=== PATIENT | female | born 1980 | race Caucasian/White ===

== ENCOUNTER 2019-06-29 12:00 | Inpatient (IN) ==
[2019-06-29 12:14] LABS: Basophils % 0.3 % (0.1-2.0); Eosinophils # 0.1 K/mm3 (0.0-0.4); Eosinophils % 0.4 % (0.1-12.0); Hematocrit 30.8 % (37.0-47.0); Hemoglobin 8.8 g/dL (12.2-16.2); Lymphocytes # 1.3 K/mm3 (0.7-4.5); Lymphocytes % 8.4 % (10-50); Mean Corpuscular HGB Conc 28.6 g/dL (31.8-35.4); Mean Corpuscular Volume 71.8 fl (81-99); Monocytes # 0.8 K/mm3 (0.1-1.0); Monocytes % 4.8 % (1.7-9.3); Neutrophils # 13.7 K/mm3 (1.8-7.8); Neutrophils % 86.1 % (37.0-80.0); Platelet Count 285 K/mm3 (142-424); Red Blood Count 4.29 M/mm3 (4.20-5.40); Red Cell Distribution Width 16.7 % (11.5-17.5); White Blood Count 15.9 K/mm3 (4.8-10.8)
[2019-06-29 12:25] LABS: Chloride 102 mmol/L (98-107); Sodium 138 mmol/L (136-145)
[2019-06-29 12:28] LABS: Alanine Aminotransferase 16 U/L (12-78); Albumin Level 4.3 g/dl (3.5-5.0); Albumin/Globulin Ratio 1.4 (1.1-1.8); Alkaline Phosphatase 73 U/L (38-126); Anion Gap 13.2 mEq/L (5-15); Aspartate Amino Transferase 22 U/L (14-36); Bilirubin,Total 0.4 mg/dl (0.2-1.3); Blood Urea Nitrogen 10 mg/dl (7-17); Calcium 9.1 mg/dl (8.4-10.2); Carbon Dioxide 27 mmol/L (22.0-30.0); Globulin 3.1 g/dL (1.3-3.2); Glucose 106 mg/dl (74-100); Total Protein,Serum 7.4 g/dl (6.3-8.2)
[2019-06-29 13:17] LABS: Lymphocytes % 9 % (10-50); Monocytes % 6 % (2-9); Neutrophils % 85 % (42-76); Total Cells Counted 100
[2019-06-29 13:18] LABS: Anisocytosis 1+; Hypochromasia 2+
--- NOTE | 2019-06-29 15:11 | Consult Report ---
*Admission Date: 06/29/19 *Reason for consult:: Diverticulitis *History of present illness: This is a 39-year-old female seen in consultation with Dr. Catherine for evaluation regarding acute diverticulitis. She presented with increasing left-sided abdominal pain. No definitive fevers. A CT scan confirmed acute diverticulitis with pericolonic punctate air. No sign of distal free air and no evidence of abscess. Review of Systems - Constitutional Denies chills - Eyes Denies discharge - ENT Denies sore throat, Denies dizziness - *Cardiovascular Denies chest pain - *Respiratory Denies cough - *Gastrointestinal Reports abdominal pain - *Genitourinary Denies urinary incontinence - *Musculoskeletal Denies abnormal walking - Integumentary/Breasts Denies non-healing lesions - *Neurologic Denies confusion - Psychiatric Denies anxiety - Endocrine Denies cold intolerance - Hematologic/Lymphatic Denies easy bruising - Allergic/Immunologic Denies hives [facility] History Medical History: Reports:: Anxiety, Depression, Hypertension *Have you ever received a pneumonia vaccine?: No *Have you received a flu vaccine this season?: Yes Other Surgeries: Yes: Cholecystectomy, Dilation and Curettage, Other Amputation: No Fractures: No - *Social History Smoking Status: Never smoker Alcohol Intake: never *Occupational Status:: employed *Travel in the last 8 weeks: None - Psychiatric History Pschychiatric History:: Reports:: Anxiety, Depression Family Hx:: Heart Attack, Stroke [employer] history: Spontaneous , Tubal Ligation Meds Home Medications Medication Instructions Recorded Confirmed Type fluticasone propionate 50 50 mcg INTRANASAL ONCE 05/07/17 06/29/19 History mcg/actuation nasal spray,suspension sertraline 100 mg tablet 100 mg PO DAILY 01/31/19 06/29/19 History ketorolac 10 mg tablet 10 mg PO Q6H PRN #20 tab 06/29/19 06/29/19 Rx omeprazole 40 mg capsule,delayed PO 06/29/19 06/29/19 History release propranolol 60 mg capsule,24 PO 06/29/19 06/29/19 History hr,extended release trazodone 50 mg tablet PO 06/29/19 06/29/19 History Allergies Allergy/AdvReac Type Severity Reaction Status Date / Time amoxicillin Allergy rash Verified 06/29/19 10:31 egg Allergy choking Verified 06/29/19 10:31 Cefaclor Allergy Intermediate I-RASH Uncoded 06/29/19 10:31 SULFA (sulfonamide) Allergy Intermediate I-RASH Uncoded 06/29/19 10:31 Exam Vital signs and Labs for Last 24 Hours: Laboratory Results - last 24 hr 06/29/19 12:02: WBC 15.9 H, RBC 4.29, Hgb 8.8 L, Hct 30.8 L, MCV 71.8 L, MCH 20.5 L, MCHC 28.6 L, RDW 16.7, Plt Count 285, MPV 10.0, Neut % (Auto) 86.1 H, Lymph % (Auto) 8.4 L, [place] % (Auto) 4.8, Eos % (Auto) 0.4, Baso % (Auto) 0.3, Neut # (Auto) 13.7 H, Lymph # (Auto) 1.3, [place] # (Auto) 0.8, Eos # (Auto) 0.1, Baso # (Auto) 0.0, Total Counted 100, Neutrophils % (Manual) 85 H, Lymphocytes % (Manual) 9 L, Monocytes % (Manual) 6, Platelet Estimate Normal, Hypochromasia 2+, Anisocytosis 1+, Microcytosis 1+ 06/29/19 12:02: Sodium 138, Potassium 4.2, Chloride 102, Carbon Dioxide 27, Anion Gap 13.2, BUN 10, Creatinine 0.80, Estimated GFR 79, Est GFR ( Amer) 96, Glucose 106 H, Calcium 9.1, Total Bilirubin 0.4, AST 22, ALT 16, Alkaline Phosphatase 73, Total Protein 7.4, Albumin 4.3, Globulin 3.1, Albumin/Globulin Ratio 1.4 - Constitutional no acute distress - *Routine Respiratory Exam Absent: respiratory distress - *Routine Cardiovascular Exam Present: RRR - *Routine Abdominal Exam Present: soft, tenderness (Mild to moderate left upper quadrant TTP. Moderate left lower quadrant TTP.). Absent: distended Results - Labs 06/29/19 12:02 06/29/19 12:02 Laboratory Results - last 24 hr 06/29/19 12:02: WBC 15.9 H, RBC 4.29, Hgb 8.8 L, Hct 30.8 L, MCV 71.8 L, MCH 20.5 L, MCHC 28.6 L, RDW 16.7, Plt Count 285, MPV 10.0, Neut % (Auto) 86.1 H, Lymph % (Auto) 8.4 L, [place] % (Auto) 4.8, Eos % (Auto) 0.4, Baso % (Auto) 0.3, Neut # (Auto) 13.7 H, Lymph # (Auto) 1.3, [place] # (Auto) 0.8, Eos # (Auto) 0.1, Baso # (Auto) 0.0, Total Counted 100, Neutrophils % (Manual) 85 H, Lymphocytes % (Manual) 9 L, Monocytes % (Manual) 6, Platelet Estimate Normal, Hypochromasia 2+, Anisocytosis 1+, Microcytosis 1+ 06/29/19 12:02: Sodium 138, Potassium 4.2, Chloride 102, Carbon Dioxide 27, Anion Gap 13.2, BUN 10, Creatinine 0.80, Estimated GFR 79, Est GFR ( Amer) 96, Glucose 106 H, Calcium 9.1, Total Bilirubin 0.4, AST 22, ALT 16, Alkaline Phosphatase 73, Total Protein 7.4, Albumin 4.3, Globulin 3.1, Albumin/Globulin Ratio 1.4 - Imaging CT scan - abdomen: report reviewed, image reviewed CT scan - pelvis: report reviewed, image reviewed Assessment and Plan (1) Acute diverticulitis Current visit: Yes Status: Acute Category: Medical Code(s): K57.92 - Diverticulitis of intestine, part unspecified, without perforation or abscess without bleeding Diverticulitis with punctate extraluminal air. No distal free air or abscess noted on CT scan. IV antibiotics Possible PICC line for outpatient antibiotics Serial abdominal exams Possible repeat CT scan in relatively near future for ongoing evaluation Colonoscopy (likely in 6 to 8 weeks) Note: As this does in some manner represent complicated diverticulitis...discussion with regard to possible elective resection (assuming more urgent intervention not necessary) will be ongoing.
[2019-06-30 06:21] LABS: Basophils # 0.1 K/mm3 (0-0.2); Basophils % 0.7 % (0.1-2.0); Eosinophils # 0.1 K/mm3 (0.0-0.4); Hematocrit 27.3 % (37.0-47.0); Lymphocytes # 1.4 K/mm3 (0.7-4.5); Lymphocytes % 17.5 % (10-50); Mean Corpuscular HGB Conc 28.4 g/dL (31.8-35.4); Mean Corpuscular Volume 71.6 fl (81-99); Mean Platelet Volume 9.9 fl (7.4-10.4); Monocytes # 0.6 K/mm3 (0.1-1.0); Monocytes % 7.9 % (1.7-9.3); Neutrophils # 5.7 K/mm3 (1.8-7.8); Neutrophils % 72.9 % (37.0-80.0); Platelet Count 235 K/mm3 (142-424); Red Blood Count 3.81 M/mm3 (4.20-5.40); Red Cell Distribution Width 16.8 % (11.5-17.5); White Blood Count 7.9 K/mm3 (4.8-10.8)
[2019-06-30 06:32] LABS: Hemoglobin 7.7 g/dL (12.2-16.2)
[2019-06-30 07:01] LABS: Anion Gap 9.6 mEq/L (5-15); Calcium 8.7 mg/dl (8.4-10.2)
--- NOTE | 2019-06-30 07:29 | Pharmacy Consult Notes ---
[facility] VTE Monitoring - Patient Demographics Admission date: 06/29/19 Report Date: 06/30/19 Time: 07:29 Allergies/Adverse Reactions: Patient Allergies cefaclor Allergy (Intermediate, Verified 06/29/19 16:19) Rash Sulfa (Sulfonamide Antibiotics) Allergy (Intermediate, Verified 06/29/19 16:19) Rash amoxicillin Allergy (Verified 06/29/19 10:31) rash egg Allergy (Verified 06/29/19 10:31) choking Height: 1.68 m Weight: 97.2 kg Patient Problems: Current Active Problems Acute diverticulitis (Acute) - VTE Risk Labs: VTE Related Lab Results Hgb 7.7 g/dL (12.2-16.2) L* 06/30/19 06:08 Hct 27.3 % (37.0-47.0) L 06/30/19 06:08 Plt Count 235 K/mm3 (142-424) 06/30/19 06:08 BUN 11 mg/dl (7-17) 06/30/19 06:08 Creatinine 0.70 mg/dl (0.52-1.04) 06/30/19 06:08 Estimated Creat Clear 164 mL/min (50-200) 06/30/19 06:08 VTE Score: 3 VTE Risk Level: Low Risk - Prophylaxis VTE Prophylaxis Ordered?: Yes Types of VTE Prophylaxis: TEDS Knee High Location of Applied Device: Bilateral Lower Extremeties
--- NOTE | 2019-06-30 07:29 | Progress Note ---
Subjective Patient reports: feels better Exam Vital signs and Labs for Last 24 Hours: Temp Pulse Resp BP Pulse Ox 98.3 F 87 16 136/67 100 06/30/19 04:00 06/30/19 04:00 06/30/19 04:00 06/30/19 04:00 06/30/19 04:00 Laboratory Results - last 24 hr 06/29/19 12:02: WBC 15.9 H, RBC 4.29, Hgb 8.8 L, Hct 30.8 L, MCV 71.8 L, MCH 20.5 L, MCHC 28.6 L, RDW 16.7, Plt Count 285, MPV 10.0, Neut % (Auto) 86.1 H, Lymph % (Auto) 8.4 L, [place] % (Auto) 4.8, Eos % (Auto) 0.4, Baso % (Auto) 0.3, Neut # (Auto) 13.7 H, Lymph # (Auto) 1.3, [place] # (Auto) 0.8, Eos # (Auto) 0.1, Baso # (Auto) 0.0, Total Counted 100, Neutrophils % (Manual) 85 H, Lymphocytes % (Manual) 9 L, Monocytes % (Manual) 6, Platelet Estimate Normal, Hypochromasia 2+, Anisocytosis 1+, Microcytosis 1+ 06/29/19 12:02: Sodium 138, Potassium 4.2, Chloride 102, Carbon Dioxide 27, Anion Gap 13.2, BUN 10, Creatinine 0.80, Estimated GFR 79, Est GFR ( Amer) 96, Glucose 106 H, Calcium 9.1, Total Bilirubin 0.4, AST 22, ALT 16, Alkaline Phosphatase 73, Total Protein 7.4, Albumin 4.3, Globulin 3.1, Albumin/Globulin Ratio 1.4 06/29/19 15:20: Lactate Dehydrogenase 167 L 06/30/19 06:08: WBC 7.9 D, RBC 3.81 L, Hgb 7.7 L*, Hct 27.3 L, MCV 71.6 L, MCH 20.3 L, MCHC 28.4 L, RDW 16.8, Plt Count 235, MPV 9.9, Neut % (Auto) 72.9, Lymph % (Auto) 17.5, [place] % (Auto) 7.9, Eos % (Auto) 1.0, Baso % (Auto) 0.7, Neut # (Auto) 5.7, Lymph # (Auto) 1.4, [place] # (Auto) 0.6, Eos # (Auto) 0.1, Baso # (Auto) 0.1 06/30/19 06:08: Sodium 135 L, Potassium 3.6, Chloride 102, Carbon Dioxide 27, Anion Gap 9.6, BUN 11, Creatinine 0.70, Estimated Creat Clear 164, Estimated GFR 93, Est GFR ( Amer) 112, Glucose 98, Calcium 8.7 I & O for Last 24 hours: Intake & Output 06/27/19 06/28/19 06/29/19 06/30/19 11:59 11:59 11:59 11:59 Intake Total 1038 / 1038 Balance 1038 / 1038 Weight 214 lb 4.629 oz - Constitutional no acute distress - *Routine Respiratory Exam Absent: respiratory distress - *Routine Cardiovascular Exam Present: RRR - *Routine Abdominal Exam Present: soft Progress Note: A&P (1) Acute diverticulitis Status: Acute Assessment and plan: Clinically improving on Invanz Likely PICC today with continuation of IV antibiotics as an outpatient Colonoscopy as outpatient in near future (likely 6-8 weeks) Consider repeat CT scan within the next 1 to 2 weeks Discussion with regard to possible elective resection will be ongoing Current Visit: Yes (2) Anemia Status: Acute Assessment and plan: Most likely chronic anemia with additional "dilutional effect" (malabsorption or chronic GI (possible [employer]) loss) Decision with regard to transfusion will be deferred to primary service EGD in near future (possibly delay timing to do a combined EGD/colonoscopy) May require small bowel series and possible capsule endoscopy Current Visit: Yes
--- NOTE | 2019-06-30 12:05 | Progress Note ---
Internal Medicine - PN: Subj *Date: 06/30/19 *Time: 12:02 Interval history: She is feeling a little better this morning. Her hemoglobin through likely dilutional effect has dropped to 7.7. She has been feeling fatigued for the last few months. It is not clear whether the blood loss is as result of malabsorption, diet or chronic blood loss. Her pain has improved and her white count is now back to normal. She has been on antibiotics for the last 24 hours. We go ahead and transfuse her a unit of blood since this will increase her iron stores as well as increase her hemoglobin level. We will make sure that she either starts iron at home or we will consider an iron infusion as well. We will plan to discharge her home tomorrow and get a PICC line as well. We will plan to continue with her IV antibiotics for at least another 12 days for a total of 2 weeks of dosages. Exam Vital signs and Labs for Last 24 Hours: Temp Pulse Resp BP Pulse Ox 98.0 F 77 16 106/64 L 95 06/30/19 11:00 06/30/19 11:00 06/30/19 11:00 06/30/19 11:00 06/30/19 11:00 Laboratory Results - last 24 hr 06/29/19 12:02: WBC 15.9 H, RBC 4.29, Hgb 8.8 L, Hct 30.8 L, MCV 71.8 L, MCH 20.5 L, MCHC 28.6 L, RDW 16.7, Plt Count 285, MPV 10.0, Neut % (Auto) 86.1 H, Lymph % (Auto) 8.4 L, [place] % (Auto) 4.8, Eos % (Auto) 0.4, Baso % (Auto) 0.3, Neut # (Auto) 13.7 H, Lymph # (Auto) 1.3, [place] # (Auto) 0.8, Eos # (Auto) 0.1, Baso # (Auto) 0.0, Total Counted 100, Neutrophils % (Manual) 85 H, Lymphocytes % (Manual) 9 L, Monocytes % (Manual) 6, Platelet Estimate Normal, Hypochromasia 2+, Anisocytosis 1+, Microcytosis 1+ 06/29/19 12:02: Sodium 138, Potassium 4.2, Chloride 102, Carbon Dioxide 27, Anion Gap 13.2, BUN 10, Creatinine 0.80, Estimated GFR 79, Est GFR ( Amer) 96, Glucose 106 H, Calcium 9.1, Total Bilirubin 0.4, AST 22, ALT 16, Alkaline Phosphatase 73, Total Protein 7.4, Albumin 4.3, Globulin 3.1, Albumin/ Globulin Ratio 1.4 06/29/19 15:20: Lactate Dehydrogenase 167 L 06/30/19 06:08: WBC 7.9 D, RBC 3.81 L, Hgb 7.7 L*, Hct 27.3 L, MCV 71.6 L, MCH 20.3 L, MCHC 28.4 L, RDW 16.8, Plt Count 235, MPV 9.9, Neut % (Auto) 72.9, Lymph % (Auto) 17.5, [place] % (Auto) 7.9, Eos % (Auto) 1.0, Baso % (Auto) 0.7, Neut # (Auto) 5.7, Lymph # (Auto) 1.4, [place] # (Auto) 0.6, Eos # (Auto) 0.1, Baso # (Auto) 0.1 06/30/19 06:08: Sodium 135 L, Potassium 3.6, Chloride 102, Carbon Dioxide 27, Anion Gap 9.6, BUN 11, Creatinine 0.70, Estimated Creat Clear 164, Estimated GFR 93, Est GFR ( Amer) 112, Glucose 98, Calcium 8.7 06/30/19 08:48: Blood Type B Positive, Antibody Screen Negative, Crossmatch (AHG) See Detail I & O for Last 24 hours: Intake & Output 06/28/19 06/29/19 06/30/19 07/01/19 11:59 11:59 11:59 11:59 Intake Total 1398 / 1398 Balance 1398 / 1398 Weight 214 lb 4.629 oz - Constitutional no acute distress - *Routine HEENT Exam Head: Present: normocephalic Eye: Present: EOMI, PERRL ENT: Present: mucous membranes moist Assessment and Plan (1) Acute diverticulitis Current visit: Yes Status: Acute Category: Medical Code(s): K57.92 - Diverticulitis of intestine, part unspecified, without perforation or abscess without bleeding (2) Anemia Current visit: Yes Status: Acute Category: Medical Code(s): D64.9 - Anemia, unspecified - Assessment and plan all Dx Assessment and Plan for all problems:: We will transfer her 1 unit of blood today. We will continue with her IV antibiotics. We will plan to send her home tomorrow. She will get a PICC line prior to discharge and we will give her IV antibiotics daily for the next couple of weeks. I would like a full 14 days of IV antibiotics. She may also be a candidate for IV iron as an outpatient as well. We may consider oral iron as well. Her white blood cell count has dropped.
[2019-06-30 13:21] LABS: Hematocrit 30.7 % (37.0-47.0)
[2019-06-30 13:54] LABS: Hemoglobin 8.9 g/dL (12.2-16.2)
--- NOTE | 2019-07-01 07:03 | Progress Note ---
Subjective Patient reports: no new complaints, feels better, still having pain, pain is less Exam Vital signs and Labs for Last 24 Hours: Temp Pulse Resp BP Pulse Ox 98.4 F 88 18 137/85 97 07/01/19 04:32 07/01/19 04:32 07/01/19 04:32 07/01/19 04:32 07/01/19 04:32 Laboratory Results - last 24 hr 06/30/19 06:08: Sodium 135 L, Potassium 3.6, Chloride 102, Carbon Dioxide 27, Anion Gap 9.6, BUN 11, Creatinine 0.70, Estimated Creat Clear 164, Estimated GFR 93, Est GFR ( Amer) 112, Glucose 98, Calcium 8.7 06/30/19 08:48: Blood Type B Positive, Antibody Screen Negative, Crossmatch (AHG) See Detail 06/30/19 13:06: Hgb 8.9 L D, Hct 30.7 L I & O for Last 24 hours: Intake & Output 06/28/19 06/29/19 06/30/19 07/01/19 11:59 11:59 11:59 11:59 Intake Total 1648 / 1648 1779 / 1779 Balance 1648 / 1648 1779 / 1779 Weight 214 lb 4.629 oz 220 lb 5 oz - Constitutional no acute distress - *Routine Respiratory Exam Absent: respiratory distress - *Routine Cardiovascular Exam Present: RRR Progress Note: A&P (1) Acute diverticulitis Status: Acute Assessment and plan: f/u AM labs likely PICC today likely d/c home today with IV abx and outpatient f/u Current Visit: Yes (2) Anemia Status: Acute Assessment and plan: f/u AM labs continuation of evaluation as outpatient Current Visit: Yes
[2019-07-01 07:14] LABS: Basophils # 0.1 K/mm3 (0-0.2); Eosinophils # 0.1 K/mm3 (0.0-0.4); Eosinophils % 1.1 % (0.1-12.0); Hematocrit 32.9 % (37.0-47.0); Hemoglobin 9.6 g/dL (12.2-16.2); Lymphocytes # 1.4 K/mm3 (0.7-4.5); Lymphocytes % 20.8 % (10-50); Mean Corpuscular HGB Conc 29.2 g/dL (31.8-35.4); Mean Corpuscular Volume 73.1 fl (81-99); Mean Platelet Volume 8.2 fl (7.4-10.4); Monocytes # 0.4 K/mm3 (0.1-1.0); Monocytes % 6.4 % (1.7-9.3); Neutrophils # 4.9 K/mm3 (1.8-7.8); Neutrophils % 70.7 % (37.0-80.0); Platelet Count 284 K/mm3 (142-424); White Blood Count 6.9 K/mm3 (4.8-10.8)
--- NOTE | 2019-07-01 08:59 | Discharge Summary ---
General - General Admission date:: 06/29/19 Discharge date: 07/01/19 HPI HPI: She is a 39-year-old lady who complains of severe left lower quadrant pain. She was seen in my office and an ultrasound was normal. We then had a CT scan that showed diverticulitis with a small microperforation. Her white blood cell count was elevated and she was also found to be microcytic anemic. As result of the pain and CT findings were elected to admit her. We consulted Dr. Medina in general surgery. She also complains of extremely heavy periods every month. She has had a previous tubal ligation. Hospital Course Hospital Course: She was admitted to the hospital for pain relief as well as IV antibiotics. Her CT scan had showed a microperforation along with acute diverticulitis. There was a trace of free air along the colon. She has been receiving 1 g IV daily of Invanz. On admission as well she was noted to be severely anemic with an initial hemoglobin of 8.8 and microcytic anemia. We elected to give her 1 unit of blood since her hemoglobin had dropped to 7.7 likely as result of dilution. On her second admission day now she is doing much better. She feels much better. Her pain is a 4 out of 10. She has been taking occasional Demerol as well as Toradol. After receiving her 1 unit of blood her hemoglobin has increased to 9.6. We will plan to discharge her home today and she will return daily for IV antibiotics as an outpatient. We will give her a total of 14 days of antibiotics. She has an appointment to follow-up with Dr. Medina in a week. I have given a prescription for Lortab 7.5 number 20 tablets to take as needed every 6 hours for pain. She also has a prescription for Toradol that she will take as well. I have told her to take a stool softener if her bowels get firm. We will start her on some iron tablets as well. I told her if she gets constipation then we should take the iron every other day. As an outpatient we will address her menorrhagia as well and she would be a good candidate for an endometrial ablation. I will see her back in the office in 2 weeks time. Her condition on discharge is stable and improved. Objective Vital signs: Temp Pulse Resp BP Pulse Ox 98 F 75 16 124/72 100 07/01/19 07:41 07/01/19 07:41 07/01/19 07:41 07/01/19 07:41 07/01/19 07:41 no acute distress - *Routine HEENT Exam Head: Present: normocephalic Eye: Present: EOMI, PERRL ENT: Present: mucous membranes moist - *Routine Neck Exam Present: supple - *Routine Respiratory Exam Present: accessory muscle use - *Routine Abdominal Exam Present: soft, normoactive bowel sounds. Absent: tenderness - *Routine Extremities Exam Absent: cyanosis, clubbing, edema - *Routine Skin Exam Present: warm. Absent: rash - Detailed Eye Exam Eyelids: Bilateral normal inspection Results Labs on day of discharge: Labs from last 24 hours 07/01/19 06/30/19 06/30/19 06:52 13:06 08:48 WBC 6.9 RBC 4.50 Hgb 9.6 L 8.9 L D Hct 32.9 L 30.7 L MCV 73.1 L MCH 21.3 L MCHC 29.2 L RDW 17.0 Plt Count 284 MPV 8.2 Neut % (Auto) 70.7 Lymph % (Auto) 20.8 [place] % (Auto) 6.4 Eos % (Auto) 1.1 Baso % (Auto) 1.0 Neut # (Auto) 4.9 Lymph # (Auto) 1.4 [place] # (Auto) 0.4 Eos # (Auto) 0.1 Baso # (Auto) 0.1 Blood Type B Positive Antibody Screen Negative Crossmatch (AHG) See Detail DS: Diagnosis - Discharge Diagnosis (1) Acute diverticulitis Status: Acute (2) Anemia Status: Acute (3) Menorrhagia Status: Acute Discharge Plan - Patient Discharge Instructions ACTIVITY: Continue current activity DIET: continue same diet Additional Instructions: Soft diet Patient Instructions: Diverticulitis, Anemia, DI for Diverticulitis - Follow up Plan Follow up with: Ryan Medina MD [Staff Physician] - 1 week Disposition: Home, Self-Longterm Medications: Home Medications Medication Instructions Recorded Confirmed Type fluticasone propionate 50 50 mcg INTRANASAL HS 05/07/17 06/30/19 History mcg/actuation nasal spray,suspension sertraline 100 mg tablet 150 mg PO DAILY 01/31/19 06/30/19 History ketorolac 10 mg tablet 10 mg PO Q6H PRN #20 tab 06/29/19 06/30/19 Rx omeprazole 40 mg capsule,delayed 40 mg PO DAILY 06/29/19 06/30/19 History release propranolol 60 mg capsule,24 60 mg PO HS 06/29/19 06/30/19 History hr,extended release trazodone 50 mg tablet 100 mg PO HS 06/29/19 06/30/19 History Ferrous Sulfate [Ferrous Sulfate 325 mg PO DAILY #30 tab 07/01/19 Rx 325mg Tablet] Hydrocodone/Acetaminophen [Lortab 1 tab PO Q6HP PRN #20 tab 07/01/19 Rx 7.5/325mg tablet] Prescriptions/Medication Reconciliation: New Hydrocodone/Acetaminophen [Lortab 7.5/325mg tablet] 1 tab PO Q6HP PRN #20 tab PRN Reason: Moderate To Severe Pain Ferrous Sulfate [Ferrous Sulfate 325mg Tablet] 325 mg PO DAILY #30 tab Continued fluticasone propionate 50 mcg/actuation nasal spray,suspension 50 mcg INTRANASAL HS omeprazole 40 mg capsule,delayed release 40 mg PO DAILY propranolol 60 mg capsule,24 hr,extended release 60 mg PO HS trazodone 50 mg tablet 100 mg PO HS ketorolac 10 mg tablet 10 mg PO Q6H PRN #20 tab PRN Reason: pain sertraline 100 mg tablet 150 mg PO DAILY - Problem Reconciliation Problems Reviewed?: Yes
== END 2019-07-01 10:54 | disposition home or self-care (01) | DRG 392 ==
LOC: 2ND 12:00 → OB 12:00 → LAB 12:00 → OBSVTOIN 14:29
PROVIDERS: ADMIT Nurse Practitioner Obstetrics & Gynecology; ATTEND Nurse Practitioner Obstetrics & Gynecology
CPT/HCPCS: 36415; 36569; 71010; 71045; 74176; 80048; 80053; 83615; 85007; 85014; 85018; 85025; 86850; 87040; C1751; J1335; P9016

== ENCOUNTER 2019-07-04 15:55 | Outpatient (CLI) | payer BC, SELFPAY | END 2019-07-04 16:03 | disposition home or self-care (01) | LOC: INF 15:55 | PROVIDERS: Visit Provider Nurse Practitioner Obstetrics & Gynecology | DX: Z45.2 Encounter for adjustment and management of vascular access device (principal); K57.92 Diverticulitis of intestine, part unspecified, without perforation or abscess without bleeding | CPT/HCPCS: G0463 ==

== ENCOUNTER → 2019-07-11 12:27 | Outpatient (CLI) | payer BC, SELFPAY ==
[2019-07-11 12:40] LABS: Basophils # 0.1 K/mm3 (0-0.2); Eosinophils # 0.1 K/mm3 (0.0-0.4); Eosinophils % 1.7 % (0.1-12.0); Hematocrit 33.7 % (37.0-47.0); Hemoglobin 9.8 g/dL (12.2-16.2); Lymphocytes # 1.7 K/mm3 (0.7-4.5); Lymphocytes % 22.7 % (10-50); Mean Corpuscular HGB Conc 29.1 g/dL (31.8-35.4); Mean Corpuscular Hemoglobin 21.7 pg (27.0-31.2); Mean Corpuscular Volume 74.5 fl (81-99); Mean Platelet Volume 10.1 fl (7.4-10.4); Monocytes # 0.4 K/mm3 (0.1-1.0); Monocytes % 4.8 % (1.7-9.3); Neutrophils # 5.2 K/mm3 (1.8-7.8); Neutrophils % 69.8 % (37.0-80.0); Platelet Count 270 K/mm3 (142-424); Red Blood Count 4.52 M/mm3 (4.20-5.40); Red Cell Distribution Width 18.5 % (11.5-17.5); White Blood Count 7.4 K/mm3 (4.8-10.8)
[2019-07-11 14:15] LABS: Anion Gap 15.8 mEq/L (5-15); Blood Urea Nitrogen 15 mg/dl (7-17); Calcium 9.4 mg/dl (8.4-10.2); Carbon Dioxide 27 mmol/L (22.0-30.0); Chloride 103 mmol/L (98-107); Estimated Glomerular Filt Rate 93 ml/min (>60); GFR (African American) 112 ML/MIN (>60); Glucose 103 mg/dl (74-100); Potassium 4.8 mmoL/L (3.5-5.1); Sodium 141 mmol/L (136-145)
--- NOTE | 2019-07-11 14:19 | CT_ITS ---
PROCEDURE: CT ABDOMEN PELVIS W CON CLINICAL INDICATION: diverticulitis Diverticulitis, pelvic and perineal pain COMPARISON: CT ABDOMEN PELVIS WO CON from 06/29/2019 TECHNIQUE: IV Contrast: 75ML OPTIRAY 350 Oral Contrast 20ml Gastroview Axial images obtained with sagittal and coronal reformats. All CT scans at the facility use one or more dose reduction, viz: automated exposure control, ma/kV adjustment per patient size (including targeted exams where dose is matched to indication, i.e. head), or iterative reconstruction technique. FINDINGS: LOWER THORAX: No acute finding ABDOMEN & PELVIS: There has been a cholecystectomy. Liver, adrenal glands, pancreas, and kidneys have an unremarkable appearance. There is mild splenomegaly at 14 cm. No intestinal obstruction or free air. No evidence of appendicitis. There is mild diverticulosis of the descending and sigmoid colon with some minimal thickening and stranding of the pericolic fat at the junction of the descending and sigmoid colon in the left lower quadrant consistent with diverticulitis. No abscess or perforation evident. IMPRESSION: Persistent but improved diverticulitis left lower quadrant. Previously noted extra colic air no longer apparent and there has been improvement in the stranding of the pericolic fat Dictated by: Jerome Oseguera MD 07/11/2019 15:08 Electronically signed by Jerome Oseguera MD in [place] 07/11/2019 15:08
== END ==
PROVIDERS: Visit Provider Nurse Practitioner Obstetrics & Gynecology
DX: K57.92 Diverticulitis of intestine, part unspecified, without perforation or abscess without bleeding (principal); R10.2 Pelvic and perineal pain; K46.9 Unspecified abdominal hernia without obstruction or gangrene
CPT/HCPCS: 36415; 74177; 80048; 85025; Q9967

== ENCOUNTER → 2019-09-13 09:31 | Outpatient (CLI) | payer BC, SELFPAY ==
[2019-09-13 09:36] LABS: Adenovirus,PCR Not Detected (NotDetected); Bordetella Pertussis Not Detected (NotDetected); Chlamydophila Pneumoniae, PCR Not Detected (NotDetected); Coronavirus 19, PCR Not Detected (NotDetected); Coronavirus 229E Not Detected (NotDetected); Coronavirus NL63 Not Detected (NotDetected); Coronavirus OC43 Not Detected (NotDetected); Coronovirus HKU1,PCR Not Detected (NotDetected); Human Metapneumovirus Not Detected (NotDetected); Influenza A, PCR Not Detected (NotDetected); Influenza AH1, 2009 Not Detected (NotDetected); Influenza AH1, PCR Not Detected (NotDetected); Influenza AH3,PCR Not Detected (NotDetected); Influenza B, PCR Not Detected (NotDetected); Mycoplasma Pneumoniae, PCR Not Detected (NotDected); Parainfluenza 1, PCR Not Detected (NotDetected); Parainfluenza 2, PCR Not Detected (NotDetected); Parainfluenza 3, PCR Not Detected (NotDetected); Parainfluenza 4, PCR Not Detected (NotDetected); Respiratory Syncytial Virus Not Detected (NotDetected); Rhinovirus/Enterovirus Not Detected (NotDetected)
[2019-09-13 10:03] LABS: Urine Pregnancy, HCG Qual. Negative (Negative)
[2019-09-13 10:19] LABS: Basophils # 0.1 K/mm3 (0-0.2); Basophils % 0.8 % (0.1-2.0); Eosinophils # 0.1 K/mm3 (0.0-0.4); Eosinophils % 2.1 % (0.1-12.0); Hematocrit 35.7 % (37.0-47.0); Lymphocytes # 1.6 K/mm3 (0.7-4.5); Lymphocytes % 23.4 % (10-50); Mean Corpuscular HGB Conc 30.9 g/dL (31.8-35.4); Mean Corpuscular Hemoglobin 24.3 pg (27.0-31.2); Mean Corpuscular Volume 78.7 fl (81-99); Mean Platelet Volume 8.2 fl (7.4-10.4); Monocytes # 0.4 K/mm3 (0.1-1.0); Monocytes % 5.7 % (1.7-9.3); Neutrophils # 4.5 K/mm3 (1.8-7.8); Platelet Count 310 K/mm3 (142-424); Red Blood Count 4.53 M/mm3 (4.20-5.40); Red Cell Distribution Width 20.1 % (11.5-17.5); White Blood Count 6.6 K/mm3 (4.8-10.8)
== END ==
PROVIDERS: Visit Provider Surgery
DX: D64.9 Anemia, unspecified (principal); Z01.818 Encounter for other preprocedural examination
CPT/HCPCS: 36415; 81025; 85025; 87581; 87633; 87798

== ENCOUNTER 2019-09-15 06:29 | Day surgery (SDC) | payer BC, SELFPAY ==
--- NOTE | 2019-09-12 14:13 | SUR.PREOP ---
09/12/2019 @ 1413--PHONE CALL MADE TO PATIENT. PATIENT UNDERSTANDS THAT LAB WORK AND COVID TESTING NEEDS TO BE COMPLETED @ 9:30,10--BUT BY 11AM ON 09/13/2019. PATIENT UNDERSTANDS IF LAB WORK AND COVID-19 TESTS ARE NOT COMPLETED BY 12PM ON THAT DATE, THE SURGERY SCHEDULED WILL BE CANCELLED AND RESCHEDULED FOR ANOTHER TIME.
[2019-09-14 09:42] VITALS: BMI 34.7
[2019-09-15] VITALS (7 sets, daily range): BP systolic 135–151; BP diastolic 79–97; PULSE 66–90; RESP 18–20; TEMP 36.2–36.3; O2SAT 94–100
[2019-09-15 06:43] LABS: Urine Pregnancy, HCG Qual. Negative (Negative)
--- NOTE | 2019-09-15 08:14 | [facility].SCOPE ---
- Procedure: Date: 09/15/19 Procedure Performed:: Esophagogastroduodenoscopy with biopsy Colonoscopy with polypectomy by means other than snare Indications:: Anemia History of diverticulitis Performing Provider:: Ryan Medina MD Referring Provider:: . Sedation:: Monitored anesthesia care Procedure:: After informed consent was obtained the patient was taken to the endoscopy suite. Sedation ensued after the patient was transferred to the left lateral decubitus position. Pulse, blood pressure, and oxygen saturation were monitored throughout the procedure. The endoscope was advanced beyond the duodenal bulb. Retroflexion within the gastric lumen was accomplished. The gastroscope was carefully removed. Digital rectal exam revealed no significant abnormality. The colonoscope was placed in position. The entire colon was evaluated. The colonoscope was carefully removed and the patient was transferred to recovery in stable condition. Please see findings and specimens below for detail. Findings:: Gastroesophageal junction at 38 cm Mild gastritis Hemorrhoidal tag/cushions Bowel preparation moderate Fairly spastic colon Moderate tortuosity Mild sigmoid diverticulosis Polyp at 40 cm Specimens:: Antral biopsy Colon polyp at 40 cm Recommendations:: Timing of repeat colonoscopy is pending pathology but will likely be between 3-5 years secondary to moderate bowel prep and spasticity/tortuosity Ongoing evaluation with regard to anemia (serial hemoglobin/hematocrit, hemoccult stool studies, possible small bowel series, possible capsule endoscopy, etc.) Complications:: No immediate Estimated blood obtained (mL): 1
--- NOTE | 2019-09-15 11:24 | P.PN_ITS ---
[facility] Anesthesia Checklist - Patient Identification Patient Identification: Arm Band - Structural Data Admitted From: Home Planned Operative Procedure/s: egd/colonoscopy Consent for Planned Operative Procedure(s) Verified: Yes Verified Documents: Surgical Consent, History and Physical - NPO Status Verified Time NPO: 00:00 - Additional verifications Anesthesia Reactions: No - Airway Assessment C-Spine Mobility Assessed: Yes (mp2) TMJ Mobility Assessed: Yes Dentition: Good Dentition - Neurological Assessment Level of Consciousness: Awake, Alert - Anesthesia Plan Anesthesia Risk discussed: Yes Anesthesia Plan: Verified ASA Class: II Anesthesia Type: MAC [facility] History Medical History: Reports:: Anxiety, Cancer (pre cancerous cells), Depression, Hypertension Denies:: Diabetes Mellitus Type 1, Diabetes Mellitus Type 2, Internal Pacemaker, MRSA, Seizures *Have you ever received a pneumonia vaccine?: No *Have you received a flu vaccine this season?: No Other Medical History: Reports: Anemia Anesthesia experience/problems:: nac Other Surgeries: Yes: Cholecystectomy, Dilation and Curettage, Other. 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
== END 2019-09-15 09:10 | disposition home or self-care (01) ==
LOC: OUTP 06:30
PROVIDERS: PCP Physician Assistant; Visit Provider Surgery
PROC: 0DJ08ZZ Inspection of Upper Intestinal Tract, Via Natural or Artificial Opening Endoscopic (ICD-10-PCS; CPT 43235; principal; 2019-09-15 07:30)
DX: D64.9 Anemia, unspecified (principal); K29.70 Gastritis, unspecified, without bleeding; K57.30 Diverticulosis of large intestine without perforation or abscess without bleeding
CPT/HCPCS: 43239; 45380; 81025; J2704

== ENCOUNTER → 2019-10-20 10:46 | Outpatient (CLI) | payer BC, SELFPAY ==
[2019-10-20 11:57] LABS: Hematocrit 36.3 % (37.0-47.0); Hemoglobin 11.6 g/dL (12.2-16.2)
== END ==
PROVIDERS: Visit Provider Surgery
DX: D64.9 Anemia, unspecified (principal)
CPT/HCPCS: 36415; 85014; 85018

== ENCOUNTER → 2019-10-24 12:19 | Outpatient (CLI) | payer BC, SELFPAY | PROVIDERS: Visit Provider Surgery | DX: D64.9 Anemia, unspecified (principal) ==

== ENCOUNTER → 2019-10-26 11:31 | Outpatient (CLI) | payer BC, SELFPAY ==
[2019-10-26 12:00] LABS: Basophils # 0.1 K/mm3 (0-0.2); Basophils % 1.1 % (0.1-2.0); Eosinophils # 0.1 K/mm3 (0.0-0.4); Eosinophils % 1.8 % (0.1-12.0); Hematocrit 36.9 % (37.0-47.0); Lymphocytes # 1.7 K/mm3 (0.7-4.5); Lymphocytes % 23.5 % (10-50); Mean Corpuscular HGB Conc 32.5 g/dL (31.8-35.4); Mean Corpuscular Hemoglobin 27.3 pg (27.0-31.2); Mean Corpuscular Volume 84.2 fl (81-99); Mean Platelet Volume 8.6 fl (7.4-10.4); Monocytes # 0.4 K/mm3 (0.1-1.0); Monocytes % 5.8 % (1.7-9.3); Neutrophils # 4.9 K/mm3 (1.8-7.8); Neutrophils % 67.9 % (37.0-80.0); Platelet Count 278 K/mm3 (142-424); Red Blood Count 4.39 M/mm3 (4.20-5.40); Red Cell Distribution Width 15.4 % (11.5-17.5); White Blood Count 7.2 K/mm3 (4.8-10.8)
== END ==
PROVIDERS: Visit Provider Surgery
DX: K57.92 Diverticulitis of intestine, part unspecified, without perforation or abscess without bleeding (principal)
CPT/HCPCS: 36415; 85025

== ENCOUNTER → 2019-11-03 08:41 | Outpatient (CLI) | payer BC, SELFPAY ==
--- NOTE | 2019-11-03 08:42 | FL_ITS ---
PROCEDURE: FL SMALL BOWEL FOLLOW THROUGH CLINICAL INDICATION: diverticulitis Anemia COMPARISON: No exams were available for comparison FINDINGS: Fluoroscopy time: 36 seconds Novelty Worker exam shows surgical clips in right upper quadrant as well as bilateral Essure devices The small bowel has an unremarkable appearance. No obstructing lesions mucosal abnormalities or small bowel dilatation is evident. There is normal transit time. Spot views of the terminal ileum are unremarkable. IMPRESSION: Unremarkable small bowel follow-through Dictated by: Jerome Oseguera MD 11/04/2019 07:17 Electronically signed by Jerome Oseguera MD in [place] 11/04/2019 07:17
== END ==
PROVIDERS: PCP Physician Assistant; Visit Provider Surgery
DX: K57.92 Diverticulitis of intestine, part unspecified, without perforation or abscess without bleeding (principal)
CPT/HCPCS: 74250

== ENCOUNTER 2019-11-21 13:37 | Inpatient (IN) | payer BC, SELFPAY ==
[2019-11-21] VITALS (8 sets, daily range): BP systolic 116–138; BP diastolic 66–88; PULSE 65–77; RESP 18–22; TEMP 36.8–37.3; O2SAT 96–100; BMI 34.7; BMI 35.2
--- NOTE | 2019-11-21 14:03 | CT_ITS ---
PROCEDURE: CT ABDOMEN PELVIS W CON CLINICAL INDICATION: abd pain, vomitting Abdominal pain and vomiting, history of diverticulitis COMPARISON: CT ABDOMEN PELVIS W CON from 07/11/2019 TECHNIQUE: IV Contrast: 75ML OPTIRAY 350 Oral Contrast None Axial images obtained with sagittal and coronal reformats. All CT scans at the facility use one or more dose reduction, viz: automated exposure control, ma/kV adjustment per patient size (including targeted exams where dose is matched to indication, i.e. head), or iterative reconstruction technique. FINDINGS: LOWER THORAX: No acute finding ABDOMEN & PELVIS: There has been a prior cholecystectomy. There is mild splenomegaly at 14 cm. No focal liver lesion. The adrenal glands and pancreas and kidneys have an unremarkable appearance. No renal or ureteral calculi. No evidence of appendicitis. Bowel gas pattern is nonspecific with some scattered fluid-filled loops of large bowel. There is focal thickening of the junction of the descending and sigmoid colon in the left lower quadrant with stranding of the pericolic fat with associated diverticula consistent with acute diverticulitis. There is a small air-fluid level in this region in the left lower quadrant measuring 10 mm and may be due to small abscess. There is an additional 2.7 x 1.6 cm fluid collection in the left lower quadrant posterior to the junction of the descending and sigmoid colon and may be due to small developing abscess. No acute bony anomalies. There are bilateral Essure device is present IMPRESSION: 1. Acute diverticulitis in the left lower quadrant at the junction of the descending and sigmoid colon. There is a small para diverticular abscess at 10 mm with a deeper collection at 2.7 x 1.6 cm suspicious for developing abscess. No distal free air apparent. The the area of diverticulitis is in the similar region compared to 07/11/2019. 2. Scattered air-fluid levels in the colon which are nonspecific and could be seen with colitis, ileus, or diarrhea disease. Dictated by: Jerome Oseguera MD 11/21/2019 14:59 Electronically signed by Jerome Oseguera MD in [place] 11/21/2019 14:59
[2019-11-21 14:11] LABS: Basophils # 0.1 K/mm3 (0-0.2); Basophils % 0.5 % (0.1-2.0); Eosinophils # 0.1 K/mm3 (0.0-0.4); Eosinophils % 1.2 % (0.1-12.0); Hematocrit 35.6 % (37.0-47.0); Hemoglobin 11.5 g/dL (12.2-16.2); Lymphocytes # 1.8 K/mm3 (0.7-4.5); Lymphocytes % 16.6 % (10-50); Mean Corpuscular HGB Conc 32.4 g/dL (31.8-35.4); Mean Corpuscular Hemoglobin 26.5 pg (27.0-31.2); Mean Corpuscular Volume 81.9 fl (81-99); Mean Platelet Volume 8.3 fl (7.4-10.4); Monocytes # 0.6 K/mm3 (0.1-1.0); Monocytes % 5.7 % (1.7-9.3); Neutrophils # 8.1 K/mm3 (1.8-7.8); Platelet Count 356 K/mm3 (142-424); Red Blood Count 4.34 M/mm3 (4.20-5.40); Red Cell Distribution Width 14.2 % (11.5-17.5); White Blood Count 10.7 K/mm3 (4.8-10.8)
[2019-11-21 14:13] LABS: Chloride 99 mmol/L (98-107); Potassium 3.7 mmoL/L (3.5-5.1); Sodium 139 mmol/L (136-145)
[2019-11-21 14:16] LABS: Alanine Aminotransferase 22 U/L (12-78); Albumin Level 4.2 g/dl (3.5-5.0); Albumin/Globulin Ratio 1.1 (1.1-1.8); Alkaline Phosphatase 85 U/L (38-126); Amylase 63 U/L (30-110); Anion Gap 13.7 mEq/L (5-15); Aspartate Amino Transferase 22 U/L (14-36); Bilirubin,Total 0.5 mg/dl (0.2-1.3); Blood Urea Nitrogen 11 mg/dl (7-17); Calcium 9.3 mg/dl (8.4-10.2); Carbon Dioxide 30 mmol/L (22.0-30.0); Creatinine Clearance Estimated 192 mL/min (50-200); Estimated Glomerular Filt Rate 111 ml/min (>60); GFR (African American) 134 ML/MIN (>60); Globulin 3.7 g/dL (1.3-3.2); Glucose 99 mg/dl (74-100); Lipase 76 U/L (23-300); Total Protein,Serum 7.9 g/dl (6.3-8.2)
--- NOTE | 2019-11-21 14:23 | PC.NURSE ---
pt going to ct
[2019-11-21 15:35] LABS: Microscopic, Urine URINE MICROSCOPIC (MICROSCOPIC)
[2019-11-21 15:37] LABS: Appearance,Urine CLEAR (Clear); Blood, Urine 2+ (Negative); Color,Urine YELLOW (Yellow); Glucose,Urine (UA) Negative (Negative); Ketones,Urine Negative (Negative); Leukocyte Esterase,Urine Negative (Negative); Nitrate,Urine Negative (Negative); PH,Urine 5.5 (5.0-8.5); Protein,Urine 1+ (Negative); Specific Gravity, Urine <= 1.005 (1.005-1.030); Urobilinogen,Urine 0.2 EU/dl (0.2)
[2019-11-21 15:39] LABS: Urine Pregnancy, HCG Qual. Negative (Negative)
--- NOTE | 2019-11-21 15:42 | PC.NURSE ---
contacted surgery office for Dr. Medina per CARIE RAMIREZ request, staff states he is not in the office, states dr. simeon is guest relations officer and they will have him call us as he is not in the office at this time
--- NOTE | 2019-11-21 15:47 | PC.NURSE ---
CARIE RAMIREZ speaking with Dr. simeon
[2019-11-21 16:03] LABS: Bilirubin,Urine Negative (Negative)
[2019-11-21 16:04] LABS: Bacteria,Urine Trace /lpf; Mucus,Urine Trace /lpf
--- NOTE | 2019-11-21 16:54 | HMH.EDABDPAI ---
ED Disposition Clinical Impression: Diverticulitis Disposition: Admitted as Observation Condition on Discharge: Good - Critical Care Critical Care Time: No Attestation: On 11/21/19, the high probability of a clinically significant, sudden or life threatening deterioration of the following system(s) required my full and direct attention, intervention and personal management. The time I documented below is in addition to time spent performing reported procedures but includes the following listed in this critical care notation. Medical Decision Making - Medical Records Medical records reviewed: Yes: I reviewed the patient's medical records. - Jamel Inquiry Pt receiving controlled substance: No Vital Signs: 11/21/19 13:57 11/21/19 15:23 11/21/19 15:44 Temperature 99.0 F 98.9 F Temperature Source Oral Oral Pulse Rate [Left Radial] 77 65 Respiratory Rate 18 Blood Pressure [Left Arm] 117/80 128/66 Blood Pressure Mean [Left Arm] 92 86 Blood Pressure Source [Left Arm] Automatic Cuff Blood Pressure Position [Left Arm] Sitting Sitting 02 Sat by Pulse Oximetry 96 97 Oxygen Delivery Method Room Air Room Air - Lab Data Lab results reviewed: Yes: I reviewed the patient's lab results. Lab Results 11/21/19 14:00: WBC 10.7, RBC 4.34, Hgb 11.5 L, Hct 35.6 L, MCV 81.9, MCH 26.5 L, MCHC 32.4, RDW 14.2, Plt Count 356, MPV 8.3, Neut % (Auto) 76.0, Lymph % (Auto) 16.6, [place] % (Auto) 5.7, Eos % (Auto) 1.2, Baso % (Auto) 0.5, Neut # (Auto) 8.1 H, Lymph # (Auto) 1.8, [place] # (Auto) 0.6, Eos # (Auto) 0.1, Baso # (Auto) 0.1 11/21/19 14:00: Sodium 139, Potassium 3.7, Chloride 99, Carbon Dioxide 30, Anion Gap 13.7, BUN 11, Creatinine 0.60, Estimated Creat Clear 192, Estimated GFR 111, Est GFR ( Amer) 134, Glucose 99, Calcium 9.3, Total Bilirubin 0.5, AST 22, ALT 22, Alkaline Phosphatase 85, Total Protein 7.9, Albumin 4.2, Globulin 3.7 H, Albumin/Globulin Ratio 1.1, Amylase 63, Lipase 76 11/21/19 15:25: Urine Color Yellow, Urine Appearance Clear, Urine pH 5.5, Ur Specific [place] <= 1.005, Urine Protein 1+, Urine Glucose (UA) Negative, Urine Ketones Negative, Urine Blood 2+, Urine Nitrate Negative, Urine Bilirubin Negative, Urine Urobilinogen 0.2, Ur Leukocyte Esterase Negative, Urine RBC 10-20, Urine WBC 3-5, Ur Squamous Epith Cells 5-10, Urine Bacteria Trace, Urine Mucus Trace 11/21/19 15:25: Urine HCG, Qual Negative Result diagrams: 11/21/19 14:00 11/21/19 14:00 Orders (Tests/Meds): ED MEDICATIONS Generic Name Dose Route Start Last Admin Trade Name Freq PRN Reason Stop Dose Admin Ertapenem 1 gm/ Sodium 50 mls @ 100 mls/hr 11/21/19 16:30 11/21/19 16:38 Chloride IV 12/05/19 16:29 100 mls/hr Q24H DOMINIQUE Administration Protocol Discontinued Medications Generic Name Dose Route Start Last Admin Trade Name Freq PRN Reason Stop Dose Admin Hydromorphone HCl 1 mg 11/21/19 15:32 11/21/19 15:34 Dilaudid 2mg/Ml Syringe IV 11/21/19 15:33 1 mg ONCE ONE Administration Sodium Chloride 1,000 mls @ 999 mls/hr 11/21/19 14:15 11/21/19 14:13 Sod Chlor 0.9% 1000ml Bag IV 11/21/19 15:15 999 mls/hr .Q1H1M DOMINIQUE Administration Ioversol 75 ml 11/21/19 14:35 11/21/19 14:35 Rad-Optiray 350 100ml Vial IV 11/21/19 14:36 75 ml ONCE ONE Administration Protocol Ketorolac Tromethamine 30 mg 11/21/19 14:04 11/21/19 14:13 Toradol 30mg/Ml Vial IV 11/21/19 14:05 30 mg ONCE ONE Administration Ondansetron HCl 4 mg 11/21/19 14:04 11/21/19 14:13 Zofran 4mg/2ml Vial IV 11/21/19 14:05 4 mg ONCE ONE Administration Ondansetron HCl 4 mg 11/21/19 15:33 11/21/19 15:34 Zofran 4mg/2ml Vial IV 11/21/19 15:34 4 mg ONCE ONE Administration Sodium Chloride 10 ml 11/21/19 14:35 11/21/19 14:35 Rad-Saline Flush 10ml Syringe IV 11/21/19 14:36 10 ml ONCE ONE Administration - CT Data CT Scan: Abdomen, Pelvis Time Received: 16:00 Preliminary Findings:
--- NOTE | 2019-11-21 17:22 | PC.NURSE ---
dr. simeon at [facility]
--- NOTE | 2019-11-21 17:40 | HMH.GSCON ---
*Admission Date: 11/21/19 *Reason for consult:: Diverticulitis *History of present illness: Patient is a very pleasant 39-year-old white female. She has a history of diverticulitis earlier this year in June at which time she required brief inpatient stay under the care of Dr. Medina for intravenous antibiotics. She has been noted to be anemic and Dr. Medina has seen her extensively as an outpatient for work-up and evaluation including mendoza endoscopy and upper GI with small bowel follow-through. She had been in her usual state of health until this past on 11/17/2019 when she was out of town on vacation and she developed acute onset of left lower quadrant pain. evening she presented to an emergency department in [facility] and CT scan revealed diverticulitis. She was given a prescription for a fluoroquinolone and metronidazole. Over the past several days her symptoms have persisted and progressed. She had contacted the office earlier today and recommendations were to be evaluated in the emergency department. She underwent CT scan in the emergency department which revealed findings consistent with diverticulitis with possibly developing abscess in the left lower quadrant. Review of Systems - Review of Systems Review of systems:: pertinent systems reviewed and negative unless documented below [facility] History Medical History: Reports:: Anxiety, Cancer, Depression, Hypertension Denies:: Diabetes Mellitus Type 1, Diabetes Mellitus Type 2, Internal Pacemaker, MRSA, Seizures *Have you ever received a pneumonia vaccine?: No *Have you received a flu vaccine this season?: Yes Other Medical History: Reports: Anemia Other Surgeries: Yes: Cholecystectomy, Colonoscopy, Dilation and Curettage, Tubal Ligation, Other. 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 , Tubal Ligation Meds Home Medications Medication Instructions Recorded Confirmed Type fluticasone propionate 50 50 mcg INTRANASAL HS 05/07/17 11/21/19 History mcg/actuation nasal spray,suspension sertraline 100 mg tablet 150 mg PO DAILY 01/31/19 11/21/19 History ketorolac 10 mg tablet 10 mg PO Q6H PRN #20 tab 06/29/19 10/26/19 Rx omeprazole 40 mg capsule,delayed 40 mg PO DAILY 06/29/19 10/26/19 History release propranolol 60 mg capsule,24 60 mg PO HS 06/29/19 11/21/19 History hr,extended release trazodone 50 mg tablet 100 mg PO HS 06/29/19 11/21/19 History ondansetron 4 mg disintegrating 4 mg PO Q6H PRN #30 tab 07/06/19 10/26/19 Rx tablet Ferrous Sulfate [Ferrous Sulfate 325 mg PO DAILY 09/14/19 10/26/19 History 325mg Tablet] Sodium, Potassium,Mag Sulfates See Rx Instructions PO .COMPLEX 09/14/19 10/26/19 History [Suprep Bowel Prep Kit] Saccharomyces boulardii 250 mg 250 mg PO BID 10/26/19 10/26/19 History capsule Allergies Allergy/AdvReac Type Severity Reaction Status Date / Time cefaclor Allergy Intermediate Rash Verified 10/26/19 10:52 Sulfa (Sulfonamide Allergy Intermediate Rash Verified 10/26/19 10:52 Antibiotics) amoxicillin Allergy rash Verified 10/26/19 10:52 egg Allergy choking Verified 10/26/19 10:52 Exam Vital signs and Labs for Last 24 Hours: Temp Pulse Resp BP Pulse Ox 98.9 F 65 18 128/66 97 11/21/19 15:44 11/21/19 15:23 11/21/19 13:57 11/21/19 15:23 11/21/19 15:23 Laboratory Results - last 24 hr 11/21/19 14:00: WBC 10.7, RBC 4.34, Hgb 11.5 L, Hct 35.6 L, MCV 81.9, MCH 26.5 L, MCHC 32.4, RDW 14.2, Plt Count 356, MPV 8.3,
--- NOTE | 2019-11-21 17:47 | PC.NURSE ---
report called to juvenal hummel rn on second floor.
--- NOTE | 2019-11-21 19:09 | PC.NURSE ---
report given to farooq
[2019-11-22 04:00] VITALS: BP 124/80; PULSE 66; RESP 18; TEMP 37.2; O2SAT 90
[2019-11-22 05:04] VITALS: BMI 35.4
[2019-11-22 06:33] LABS: Chloride 101 mmol/L (98-107); Potassium 3.6 mmoL/L (3.5-5.1); Sodium 139 mmol/L (136-145)
[2019-11-22 06:35] LABS: Alanine Aminotransferase 15 U/L (12-78); Aspartate Amino Transferase 20 U/L (14-36); Blood Urea Nitrogen 10 mg/dl (7-17); Creatinine Clearance Estimated 197 mL/min (50-200); Estimated Glomerular Filt Rate 111 ml/min (>60); GFR (African American) 134 ML/MIN (>60)
[2019-11-22 06:36] LABS: Albumin Level 3.6 g/dl (3.5-5.0); Albumin/Globulin Ratio 1.1 (1.1-1.8); Alkaline Phosphatase 71 U/L (38-126); Anion Gap 9.6 mEq/L (5-15); Bilirubin,Total 0.3 mg/dl (0.2-1.3); Calcium 8.8 mg/dl (8.4-10.2); Carbon Dioxide 32 mmol/L (22.0-30.0); Globulin 3.2 g/dL (1.3-3.2); Glucose 90 mg/dl (74-100); Total Protein,Serum 6.8 g/dl (6.3-8.2)
[2019-11-22 06:38] LABS: Basophils # 0.1 K/mm3 (0-0.2); Basophils % 0.7 % (0.1-2.0); Eosinophils # 0.1 K/mm3 (0.0-0.4); Eosinophils % 1.5 % (0.1-12.0); Hematocrit 34.2 % (37.0-47.0); Hemoglobin 10.7 g/dL (12.2-16.2); Lymphocytes # 1.4 K/mm3 (0.7-4.5); Lymphocytes % 16.3 % (10-50); Mean Corpuscular HGB Conc 31.2 g/dL (31.8-35.4); Mean Corpuscular Hemoglobin 26.4 pg (27.0-31.2); Mean Corpuscular Volume 84.6 fl (81-99); Mean Platelet Volume 8.3 fl (7.4-10.4); Monocytes # 0.6 K/mm3 (0.1-1.0); Monocytes % 6.3 % (1.7-9.3); Neutrophils # 6.7 K/mm3 (1.8-7.8); Neutrophils % 75.2 % (37.0-80.0); Platelet Count 300 K/mm3 (142-424); Red Blood Count 4.04 M/mm3 (4.20-5.40); Red Cell Distribution Width 14.2 % (11.5-17.5); White Blood Count 8.9 K/mm3 (4.8-10.8)
--- NOTE | 2019-11-22 07:00 | HMH.GSPN ---
Subjective Patient reports: no new complaints Narrative: Pt states that she is still sore . She was given a regular diet. Exam Vital signs and Labs for Last 24 Hours: Temp Pulse Resp BP Pulse Ox 98.9 F 66 18 124/80 90 L 11/22/19 04:00 11/22/19 04:00 11/22/19 04:00 11/22/19 04:00 11/22/19 04:00 Laboratory Results - last 24 hr 11/21/19 14:00: WBC 10.7, RBC 4.34, Hgb 11.5 L, Hct 35.6 L, MCV 81.9, MCH 26.5 L, MCHC 32.4, RDW 14.2, Plt Count 356, MPV 8.3, Neut % (Auto) 76.0, Lymph % (Auto) 16.6, [place] % (Auto) 5.7, Eos % (Auto) 1.2, Baso % (Auto) 0.5, Neut # (Auto) 8.1 H, Lymph # (Auto) 1.8, [place] # (Auto) 0.6, Eos # (Auto) 0.1, Baso # (Auto) 0.1 11/21/19 14:00: Sodium 139, Potassium 3.7, Chloride 99, Carbon Dioxide 30, Anion Gap 13.7, BUN 11, Creatinine 0.60, Estimated Creat Clear 192, Estimated GFR 111, Est GFR ( Amer) 134, Glucose 99, Calcium 9.3, Total Bilirubin 0.5, AST 22, ALT 22, Alkaline Phosphatase 85, Total Protein 7.9, Albumin 4.2, Globulin 3.7 H, Albumin/Globulin Ratio 1.1, Amylase 63, Lipase 76 11/21/19 15:25: Urine Color Yellow, Urine Appearance Clear, Urine pH 5.5, Ur Specific [place] <= 1.005, Urine Protein 1+, Urine Glucose (UA) Negative, Urine Ketones Negative, Urine Blood 2+, Urine Nitrate Negative, Urine Bilirubin Negative, Urine Urobilinogen 0.2, Ur Leukocyte Esterase Negative, Urine RBC 10-20, Urine WBC 3-5, Ur Squamous Epith Cells 5-10, Urine Bacteria Trace, Urine Mucus Trace 11/21/19 15:25: Urine HCG, Qual Negative 11/22/19 05:48: WBC 8.9, RBC 4.04 L, Hgb 10.7 L, Hct 34.2 L, MCV 84.6, MCH 26.4 L, MCHC 31.2 L, RDW 14.2, Plt Count 300, MPV 8.3, Neut % (Auto) 75.2, Lymph % (Auto) 16.3, [place] % (Auto) 6.3, Eos % (Auto) 1.5, Baso % (Auto) 0.7, Neut # (Auto) 6.7, Lymph # (Auto) 1.4, [place] # (Auto) 0.6, Eos # (Auto) 0.1, Baso # (Auto) 0.1 11/22/19 05:48: Sodium 139, Potassium 3.6, Chloride 101, Carbon Dioxide 32 H, Anion Gap 9.6, BUN 10, Creatinine 0.60, Estimated Creat Clear 197, Estimated GFR 111, Est GFR ( Amer) 134, Glucose 90, Calcium 8.8, Total Bilirubin 0.3, AST 20, ALT 15 D, Alkaline Phosphatase 71, Total Protein 6.8, Albumin 3.6 D, Globulin 3.2, Albumin/Globulin Ratio 1.1 I & O for Last 24 hours: Intake & Output 11/19/19 11/20/19 11/21/19 11/22/19 11:59 11:59 11:59 11:59 Intake Total 150 / 150 Balance 150 / 150 Weight 220 lb 3 oz - *Routine Abdominal Exam Present: soft Comments: Tenderness in LLQ Progress Note: A&P Assessment and Plan for All Diagnoses:: Continue IV antibiotics. Limit to full liquid diet.
--- NOTE | 2019-11-22 07:08 | HMH.PHAVTE ---
[facility] Pharmacy VTE Monitoring - Patient Demographics Admission date: 11/21/19 Report Date: 11/22/19 Time: 07:08 Allergies/Adverse Reactions: Patient Allergies Penicillins Allergy (Severe, Verified 11/21/19 18:26) Hives cefaclor Allergy (Intermediate, Verified 11/21/19 18:25) Rash Sulfa (Sulfonamide Antibiotics) Allergy (Intermediate, Verified 11/21/19 18:25) Rash amoxicillin Allergy (Verified 11/21/19 18:25) rash egg Allergy (Verified 11/21/19 18:25) choking Height: 1.68 m Weight: 99.875 kg Patient Problems: Current Active Problems Diverticulitis (Acute) - VTE Risk Labs: VTE Related Lab Results Hgb 10.7 g/dL (12.2-16.2) L 11/22/19 05:48 Hct 34.2 % (37.0-47.0) L 11/22/19 05:48 Plt Count 300 K/mm3 (142-424) 11/22/19 05:48 BUN 10 mg/dl (7-17) 11/22/19 05:48 Creatinine 0.60 mg/dl (0.52-1.04) 11/22/19 05:48 Estimated Creat Clear 197 mL/min (50-200) 11/22/19 05:48 Was VTE Risk Assessment Performed: Yes VTE Score: 1 Clinical Trial Participant: No - Prophylaxis VTE Prophylaxis Ordered?: Yes Types of VTE Prophylaxis: TEDS Knee High
--- NOTE | 2019-11-22 07:41 | HMH.HP ---
*Admission Date: 11/21/19 *Chief complaint: Abdominal pain *History of present illness: 39-year-old female with history of diverticulitis of the sigmoid colon presented to the emergency department with worsening left lower quadrant abdominal pain after recently being diagnosed with diverticulitis approximately 3 days prior. Patient had been out of town when she developed left lower quadrant abdominal pain was seen and was diagnosed with in outside hospital (the [facility] in [facility]) diverticulitis based on presenting symptoms, CT scan, elevated white blood cell count. Patient was given IV antibiotics in the emergency department and then discharged. She reports 24 hours after beginning therapy she developed fevers and through the weekend her pain gradually worsened and she developed associated nausea and vomiting. Patient's pain was worse yesterday and she presented to our emergency department where she was found to have findings consistent with diverticulitis with developing abscess of approximately 2.7 cm. Surgical service was contacted and recommended admission with IV antibiotics. Patient's abscess is in the same area as her prior episode of diverticulitis with perforation back in June of this year. This morning she reports she is beginning to feel better. [facility] History I have reviewed the patient's past medical history: Yes Medical History: Reports:: Anxiety, Cancer, Depression, Hypertension Denies:: Diabetes Mellitus Type 1, Diabetes Mellitus Type 2, Internal Pacemaker, MRSA, Seizures *Have you ever received a pneumonia vaccine?: No *Have you received a flu vaccine this season?: Yes Other Medical History: Reports: Anemia Other Surgeries: Yes: Cholecystectomy, Colonoscopy, Dilation and Curettage, Tubal Ligation, Other. 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 , Tubal Ligation Review of Systems - Review of Systems Review of systems:: pertinent systems reviewed and negative unless documented below Meds Home Medications Medication Instructions Recorded Confirmed Type fluticasone propionate 50 50 mcg INTRANASAL HS 05/07/17 11/21/19 History mcg/actuation nasal spray,suspension sertraline 100 mg tablet 150 mg PO DAILY 01/31/19 11/21/19 History omeprazole 40 mg capsule,delayed 40 mg PO DAILY 06/29/19 11/21/19 History release propranolol 60 mg capsule,24 60 mg PO HS 06/29/19 11/21/19 History hr,extended release trazodone 50 mg tablet 100 mg PO HS 06/29/19 11/21/19 History ondansetron 4 mg disintegrating 4 mg PO Q6H PRN #30 tab 07/06/19 11/21/19 Rx tablet Lactobacillus Rhamnosus GG 1 each PO DAILY 11/21/19 11/21/19 History [Culturelle] Allergies Allergy/AdvReac Type Severity Reaction Status Date / Time Penicillins Allergy Severe Hives Verified 11/21/19 18:26 cefaclor Allergy Intermediate Rash Verified 11/21/19 18:25 Sulfa (Sulfonamide Allergy Intermediate Rash Verified 11/21/19 18:25 Antibiotics) amoxicillin Allergy rash Verified 11/21/19 18:25 egg Allergy choking Verified 11/21/19 18:25 Exam Vital signs and Labs for Last 24 Hours: Temp Pulse Resp BP Pulse Ox 98.9 F 66 18 124/80 90 L 11/22/19 04:00 11/22/19 04:00 11/22/19 04:00 11/22/19 04:00 11/22/19 04:00 Laboratory Results - last 24 hr 11/21/19 14:00: WBC 10.7, RBC 4.34, Hgb 11.5 L, Hct 35.6 L, MCV 81.9, MCH 26.5 L, MCHC 32.4, RDW 14.2, Plt Count 356, MPV 8.3, Neut % (Auto) 76.0, Lymph % (Auto) 16.6, [place] % (Auto) 5.7, Eos % (Auto)
[2019-11-22 08:00] VITALS: BP 121/79; PULSE 79; RESP 18; TEMP 36.6; O2SAT 93
--- NOTE | 2019-11-22 10:07 | HMH.PHAINT ---
MEDICATION RECONCILIATION COMPLETED USING OFFICE NOTE FROM 10/26/2019.
[2019-11-22 16:00] VITALS: BP 122/72; PULSE 75; RESP 18; TEMP 36.5; O2SAT 100
--- NOTE | 2019-11-22 18:02 | PC.NURSE ---
Pt has required Dilaudid 1mg IV 3-4 times for abd pain. Had 1 dose of Zofran for vomiting. Is up ad tanika. Tolerates a full liquid diet. Received 2L of IVF per order of NS @ 150mL/hr. No other issues noted.
--- NOTE | 2019-11-22 18:38 | PC.NURSE ---
Pt had episode of vomiting @ 1700. I gave Zofran 4mg IV. She still complains of nausea @ 1830. Contacted Dr. Hurtado, who ordered Promethazine 12.5mg IV x 1 dose. Order faxed to [facility].
[2019-11-22 20:00] VITALS: BP 152/87; PULSE 67; RESP 18; TEMP 36.8; O2SAT 94
[2019-11-23 04:00] VITALS: BP 134/74; PULSE 75; RESP 18; TEMP 36.7; O2SAT 95
[2019-11-23 04:53] VITALS: BMI 35.7
[2019-11-23 08:00] VITALS: BP 151/95; PULSE 62; RESP 16; TEMP 36.8; O2SAT 99
--- NOTE | 2019-11-23 08:18 | HMH.ACPN2 ---
Internal Medicine - PN: Subj *Date: 11/23/19 *Time: 08:18 Interval history: Patient states her pain is better today than it was yesterday. She is battled nausea after each attempt to eat and yesterday vomited after both lunch and attempts at supper with just liquid diets. This morning she has had a small amount of sherbet. Exam Vital signs and Labs for Last 24 Hours: Temp Pulse Resp BP Pulse Ox 98.0 F 75 18 134/74 95 11/23/19 04:00 11/23/19 04:00 11/23/19 04:00 11/23/19 04:00 11/23/19 04:00 I & O for Last 24 hours: Intake & Output 11/20/19 11/21/19 11/22/19 11/23/19 11:59 11:59 11:59 11:59 Intake Total 510 / 510 2890 / 2890 Output Total 1000 / 1000 Balance 510 / 510 1890 / 1890 Weight 220 lb 3 oz 222 lb 7 oz Narrative: patient looks comfortable. Lungs are clear. Heart has a regular rate and rhythm. Abdomen is soft with persistent left lower quadrant tenderness although left upper quadrant tenderness present yesterday has resolved. Bowel sounds are present. Assessment and Plan (1) Acute diverticulitis Current visit: No Status: Acute Category: Medical Code(s): K57.92 - Diverticulitis of intestine, part unspecified, without perforation or abscess without bleeding (2) Colonic diverticular abscess Current visit: Yes Status: Acute Category: Medical Code(s): K57.20 - Diverticulitis of large intestine with perforation and abscess without bleeding - Assessment and plan all Dx Assessment and Plan for all problems:: Continue IV antibiotics and repeat CT scan of the abdomen and pelvis tomorrow to reassess the diverticular abscess
--- NOTE | 2019-11-23 11:11 | XR_ITS ---
PROCEDURE: XR CHEST PORTABLE PICC PLAC CLINICAL HISTORY: Confirm PICC line placement COMPARISON: XR CHEST PORTABLE PICC PLAC from 07/01/2019 FINDINGS: The cardiomediastinal silhouette and pulmonary vascularity are within normal limits. The lungs are clear without infiltrates, suspicious nodules, or pleural effusions. Left upper extremity PICC line has been inserted. The tip is in good position in the region of the superior vena cava. IMPRESSION: PICC line tip in good position. Dictated by: Jerome Oseguera MD 11/23/2019 13:39 Electronically signed by Jerome Oseguera MD in [place] 11/23/2019 13:39
--- NOTE | 2019-11-23 11:12 | HMH.GSPN ---
Subjective Patient reports: no new complaints, feels better, still having pain Exam Vital signs and Labs for Last 24 Hours: Temp Pulse Resp BP Pulse Ox 98.2 F 62 16 151/95 H 99 11/23/19 08:00 11/23/19 08:00 11/23/19 08:00 11/23/19 08:00 11/23/19 08:00 I & O for Last 24 hours: Intake & Output 11/20/19 11/21/19 11/22/19 11/23/19 11:59 11:59 11:59 11:59 Intake Total 510 / 510 3130 / 3130 Output Total 1000 / 1000 Balance 510 / 510 2130 / 2130 Weight 220 lb 3 oz 222 lb 7 oz - Constitutional no acute distress - *Routine Respiratory Exam Absent: respiratory distress - *Routine Cardiovascular Exam Present: RRR - *Routine Abdominal Exam Present: soft, tenderness Progress Note: A&P (1) Acute diverticulitis Status: Acute Assessment and plan: Complex/recurrent diverticulitis with likely small forming abscess . She continues to improve on current antibiotic coverage. Continue IV antibiotics PICC line for IV antibiotics at home Repeat CT scan (hopefully next week). She may require earlier CT scan if she does not continue to improve Possible CT or ultrasound-guided drainage of any persistent abscess I have had a long discussion with the patient concerning the risks and benefits of surgical resection. She understands that she has complex/recurrent diverticulitis and would likely benefit greatly from elective resection (assuming she is able to avoid urgent intervention). She states that she is probably going to go through with it . She would like to consider all of her options including laparoscopic approach. Current Visit: No (2) Colonic diverticular abscess Status: Acute Current Visit: Yes
[2019-11-23 16:00] VITALS: BP 137/79; PULSE 57; RESP 16; TEMP 37; O2SAT 98
--- NOTE | 2019-11-23 18:03 | PC.NURSE ---
NO ACUTE CHANGES THIS SHIFT. PICC LINE PLACED IN MAILE. PAIN AND NAUSEA MEDS ADMINISTERED PER JUL. PT REPORTED THAT SHE HAD ONE EPISODE OF EMESIS BEFORE DINNER. SAFTEY MEASURES IN PLACE, CALL LIGHT WITHIN REACH, WILL CONTINUE TO MONITOR.
--- NOTE | 2019-11-23 19:09 | PC.NURSE ---
report given to edgar
[2019-11-23 19:33] VITALS: BP 138/80; PULSE 71; RESP 18; TEMP 37.3; O2SAT 96
[2019-11-24 04:00] VITALS: BP 153/86; PULSE 67; RESP 16; TEMP 36.7; O2SAT 98
--- NOTE | 2019-11-24 04:42 | PC.NURSE ---
A&O X4. PT RESTED WELL WITH THIS SHIFT WITH EYES CLOSED. NO ACUTE CHANGES NOTED FROM PREVIOUS SHIFT. PT WITH C/O NAUSEA X1 THIS SHIFT. ADMINISTERED PHENERGAN PER PT REQUEST. UPON REASSESSMENT PT NOTED RESTING WITH EYES CLOSED WITH NO FURTHER COMPLAINTS. PT C/O MILD PAIN T/O SHIFT. ADMINISTERED DILAUDID PER MAR X3 THUS FAR. REPORTS PAIN 5/10 ON PAIN SCALE. UPON REASSESSMENT PT STATES ADEQUATE PAIN RELIEF. BILATERAL LUNGS NOTED CLEAR T/O UPON AUSCULTATION. TENDERNESS TO LEFT LOWER ABDOMEN WITH PALPATION. NO EDEMA NOTED. VSS. REMAINS SAFE. CALL LIGHT WITHIN REACH. WILL CONTINUE TO MONITOR.
--- NOTE | 2019-11-24 07:08 | P.PN_ITS ---
Subjective Patient reports: feels better, still having pain ((pain quite a bit better per pt.)) Exam Vital signs and Labs for Last 24 Hours: Temp Pulse Resp BP Pulse Ox 98.1 F 67 16 153/86 H 98 11/24/19 04:00 11/24/19 04:00 11/24/19 04:00 11/24/19 04:00 11/24/19 04:00 I & O for Last 24 hours: Intake & Output 11/21/19 11/22/19 11/23/19 11/24/19 11:59 11:59 11:59 11:59 Intake Total 510 / 510 3130 / 3130 1380 / 1380 Output Total 1000 / 1000 550 / 550 Balance 510 / 510 2130 / 2130 830 / 830 Weight 220 lb 3 oz 222 lb 7 oz - Constitutional no acute distress - *Routine Respiratory Exam Absent: respiratory distress - *Routine Cardiovascular Exam Present: RRR - *Routine Neurological Exam Present: alert - Routine Psychiatric Exam Present: normal affect Progress Note: A&P (1) Acute diverticulitis Status: Acute Assessment and plan: continues to improve on abx 1) OK from surgical standpoint for discharge home with continuation of Invanz via PICC 2) Close outpatient follow-up 3) Ongoing discussion with regard to elective resection. The patient wishes to consider laparoscopic approaches; therefore, Dr. Mason Joseph of the Colorectal Surgery Service at [facility] will be consulted. Current Visit: No (2) Colonic diverticular abscess Status: Acute Current Visit: Yes
--- NOTE | 2019-11-24 07:31 | SW/DCPLANNER ---
PATIENT ADMITTED TO [facility] WITH A DIAGNOSIS OF DIVERTRICULITIS.... SHE MAY DISCHARGE LATER THIS AM WITH A SURGICAL CONSULT IN [place].... AT THIS TIME SHE DOES NOT HAVE ANY DISCHARGE PLANNING NEEDS....
--- NOTE | 2019-11-24 07:33 | HMH.DCSUM ---
General - General Admission date:: 11/21/19 Discharge date: 11/24/19 HPI HPI: 39-year-old female with history of diverticulitis of the sigmoid colon presented to the emergency department with worsening left lower quadrant abdominal pain after recently being diagnosed with diverticulitis approximately 3 days prior. Patient had been out of town when she developed left lower quadrant abdominal pain was seen and was diagnosed with in outside hospital (the [facility] in [facility]) diverticulitis based on presenting symptoms, CT scan, elevated white blood cell count. Patient was given IV antibiotics in the emergency department and then discharged. She reports 24 hours after beginning therapy she developed fevers and through the weekend her pain gradually worsened and she developed associated nausea and vomiting. Patient's pain was worse yesterday and she presented to our emergency department where she was found to have findings consistent with diverticulitis with developing abscess of approximately 2.7 cm. Surgical service was contacted and recommended admission with IV antibiotics. Patient's abscess is in the same area as her prior episode of diverticulitis with perforation back in June of this year. This morning she reports she is beginning to feel better. Hospital Course Hospital Course: Patient was admitted and started on IV Invanz for her acute diverticulitis with small diverticular abscess. Patient was given Dilaudid every 2 hours as needed for pain control. Patient was initially started on Zofran 4 mg IV every 6 hours for nausea although ultimately Phenergan seemed to work better for her nausea likely because it made her sleep a little bit better per the patient. Patient progressed daily with improvement in pain and nausea. She was ultimately able to tolerate a liquid diet. Surgeon was consulted. Dr. Medina was familiar with the patient and has had discussions with her regarding elective resection of the sigmoid colon. Patient anticipates that she will need surgery and would prefer a laparoscopic approach. As patient improved she will continue IV Invanz as an outpatient. Plan will be for follow-up CT scan of the abdomen and pelvis with IV and oral contrast on November 28 with follow-up appointment with Dr. Cuevas later in the day Objective Vital signs: Temp Pulse Resp BP Pulse Ox 98.1 F 67 16 153/86 H 98 11/24/19 04:00 11/24/19 04:00 11/24/19 04:00 11/24/19 04:00 11/24/19 04:00 no acute distress - *Routine Respiratory Exam Present: CTA bilaterally - *Routine Cardiovascular Exam Present: RRR - *Routine Abdominal Exam Present: normoactive bowel sounds, tenderness (left lower quadrant) DS: Diagnosis - Discharge Diagnosis (1) Acute diverticulitis Status: Acute (2) Colonic diverticular abscess Status: Acute Discharge Plan - Patient Discharge Instructions ACTIVITY: Continue current activity DIET: continue same diet Patient Instructions: Diverticulitis, DI for Acute Abdomen, Peripherally Inserted Central Catheter, Central Line-Associated Bloodstream Infections - Follow up Plan Follow up with: Ly Oconnor [Primary Care Provider] - Ryan Medina MD [Staff Physician] - 11/30/19 Home Medications: Home Medications Medication Instructions Recorded Confirmed Type fluticasone propionate 50 50 mcg INTRANASAL HS 05/07/17 11/21/19 History mcg/actuation nasal spray,suspension sertraline 100 mg tablet 150 mg PO DAILY 01/31/19 11/21/19 History omeprazole 40 mg capsule,delayed 40 mg PO DAILY 06/29/19 11/21/19 History release propranolol 60 mg capsule,24 60 mg PO HS 06/29/19 11/21/19 History hr,extended release trazodone 50 mg tablet 100 mg PO HS 06/29/19 11/21/19 History ondansetron 4 mg disintegrating 4 mg PO Q6H PRN #30 tab 07/06/19 11/21/19 Rx tablet Lactobacillus Rhamnosus GG 1 each PO DAILY 11/21/19 11/21/19 History [Culturelle] Hydr
[2019-11-24 07:52] VITALS: O2SAT 98
[2019-11-24 08:00] VITALS: BP 141/78; PULSE 66; RESP 18; TEMP 36.8; O2SAT 97
--- NOTE | 2019-11-24 09:40 | PC.NURSE ---
per Kamryn, PharmD, stated it was ok to give abx at 1000 before discharge.
--- NOTE | 2019-11-24 10:22 | HMH.PHAINT ---
PATIENT WAS COUNSELED ON NEW MEDICATIONS: PROMETHAZINE AND NORCO. THE PATIENT WILL CONTINUE ALL HOME MEDICATIONS. THE PATIENT WILL ALSO CONTINUE IV INVANZ OUTPATIENT. THE PATIENT DID NOT HAVE ANY QUESTIONS.
--- NOTE | 2019-11-24 10:57 | PC.NURSE ---
CENTRAL LINE DSG CHANGE COMPLETED TO [facility] PICC. STERILE PROCEDURE. PATIENT TOLERATED WELL.
== END 2019-11-24 11:24 | disposition home or self-care (01) | DRG 392 ==
LOC: ER 14:12 → 2ND 16:57
PROVIDERS: Admitting Provider Family Medicine; Emergency Provider Family Medicine; PCP Physician Assistant; Visit Provider Family Medicine
DX: K57.20 Diverticulitis of large intestine with perforation and abscess without bleeding (principal); I10 Essential (primary) hypertension; Z79.899 Other long term (current) drug therapy; Z88.0 Allergy status to penicillin; Z88.1 Allergy status to other antibiotic agents; Z88.2 Allergy status to sulfonamides; Z91.012 Allergy to eggs
CPT/HCPCS: 36415; 36569; 71045; 74177; 80053; 81001; 81025; 82150; 83690; 85025; 96365; 96375; 96376; 99284; C1751; J1335; J2405; Q9967

== ENCOUNTER 2019-11-25 10:20 | Outpatient (CLI) | payer BC, SELFPAY ==
[2019-11-25 10:35] VITALS: BP 145/82; PULSE 66; RESP 18; O2SAT 95
[2019-11-25 11:23] VITALS: BP 149/92; PULSE 78; RESP 18
== END 2019-11-25 11:23 | disposition home or self-care (01) ==
LOC: INF 10:22
PROVIDERS: Visit Provider Family Medicine
DX: K57.20 Diverticulitis of large intestine with perforation and abscess without bleeding (principal)
CPT/HCPCS: 96365; J1335

== ENCOUNTER → 2019-11-26 11:18 | Outpatient (CLI) | payer BC, SELFPAY ==
[2019-11-26 11:44] VITALS: BP 124/90; PULSE 76; RESP 20; TEMP 36.7; O2SAT 98
[2019-11-26 12:31] VITALS: BP 122/78; PULSE 76; RESP 16; TEMP 36.6; O2SAT 98
== END ==
PROVIDERS: PCP Physician Assistant; Visit Provider Family Medicine
DX: K57.20 Diverticulitis of large intestine with perforation and abscess without bleeding (principal)
CPT/HCPCS: 96365; J1335

== ENCOUNTER → 2019-11-27 11:19 | Outpatient (CLI) | payer BC, SELFPAY ==
[2019-11-27 12:01] VITALS: BP 126/83; PULSE 68; RESP 16; TEMP 36.8; O2SAT 100
[2019-11-27 12:35] VITALS: BP 135/72; PULSE 79; RESP 16; TEMP 36.7; O2SAT 99
== END ==
PROVIDERS: PCP Physician Assistant; Visit Provider Family Medicine
DX: K57.20 Diverticulitis of large intestine with perforation and abscess without bleeding (principal)
CPT/HCPCS: 96365; G0463; J1335

== ENCOUNTER 2019-11-28 11:39 | Outpatient (CLI) | payer BC, SELFPAY ==
[2019-11-28 11:51] VITALS: BP 124/69; PULSE 74; RESP 18; TEMP 36.6; O2SAT 99
[2019-11-28 12:45] VITALS: BP 125/72; PULSE 72; RESP 16; TEMP 36.6; O2SAT 98
== END 2019-11-28 12:45 | disposition home or self-care (01) ==
LOC: INF 11:39
PROVIDERS: Visit Provider Family Medicine
DX: K57.20 Diverticulitis of large intestine with perforation and abscess without bleeding (principal)
CPT/HCPCS: 96365; J1335

== ENCOUNTER → 2019-11-29 11:06 | Outpatient (CLI) | payer BC, SELFPAY ==
--- NOTE | 2019-11-29 11:06 | CT_ITS ---
PROCEDURE: CT ABDOMEN PELVIS WO/W CON CLINICAL INDICATION: Left lower Quadrant Pain, Acute Onset Follow-up on diverticular abscess. COMPARISON: CT ABDOMEN PELVIS W CON from 11/21/2019 TECHNIQUE: IV Contrast: 75ML OPTIRAY 350 Oral Contrast 450ml Redicat Axial images obtained with sagittal and coronal reformats. All CT scans at the facility use one or more dose reduction, viz: automated exposure control, ma/kV adjustment per patient size (including targeted exams where dose is matched to indication, i.e. head), or iterative reconstruction technique. FINDINGS: LOWER THORAX: No acute finding. A few small calcified nodules/granulomata in the left lung base. ABDOMEN & PELVIS: Hepatobiliary: There is decreased attenuation of the liver consistent with steatosis. There is no demonstrated discrete hepatic lesion The gallbladder is surgically absent. The bile ducts are within normal limits. Pancreas: There is no demonstrated pancreatic mass or cyst. No ductal dilatation. Spleen: There is a mild splenomegaly at 14.1 centimeter in AP length. No focal lesion is seen. Adrenals: The adrenal glands are normal. Kidneys, ureters and bladder: Both kidneys have a normal size and morphology. There is no hydronephrosis. Both ureters have a normal course and caliber. The urinary bladder is nearly empty. No ureteral or bladder calculus is identified. Gastrointestinal: The stomach and small bowel are normal with no obstruction or inflammation. Again demonstrated diverticulosis with mild/moderate segmental wall thickening of the distal descending colon and pericolonic fat stranding associated with diverticula consistent with diverticulitis. Also redemonstrated a small 10 millimeter air-fluid level in the left lower quadrant, likely a prominent colonic diverticulum. There is no drainable abscess identified in the left lower quadrant or in pelvis. There is no bowel obstruction. Appendix appears normal. Reproductive organs: An anteverted uterus is seen with bilateral tubal Essure device. Bilateral adnexal/ovarian cysts. Lymphatic system: There is no adenopathy demonstrated within the abdomen/pelvis. Vasculature: Minimal atheromatous calcification of the infrarenal aorta. Normal caliber abdominal aorta. Peritoneum: No free fluid or free intraperitoneal air is seen. Abdominal wall and musculoskeletal: A small fat containing umbilical hernia. Lower lumbosacral mild degenerative disc/endplate spondylosis and facet arthrosis. IMPRESSION: 1. Distal descending/sigmoid subacute diverticulitis. No drainable abscess cavity is seen in the left lower quadrant or in the pelvis. 2. Mild splenomegaly. Mild hepatic steatosis. Dictated by: Devorah Arroyo 11/29/2019 12:12 Electronically signed by Devorah Arroyo in [place] 11/29/2019 12:12
== END ==
PROVIDERS: PCP Physician Assistant; Visit Provider Surgery
DX: R10.32 Left lower quadrant pain (principal)
CPT/HCPCS: 74178; Q9967

== ENCOUNTER 2019-11-29 11:23 | Outpatient (CLI) | payer BC, SELFPAY ==
[2019-11-29 12:05] VITALS: BP 133/83; PULSE 63; RESP 18; TEMP 36.6; O2SAT 99
[2019-11-29 12:55] VITALS: BP 143/89; PULSE 64; RESP 18; O2SAT 98
== END 2019-11-29 12:55 | disposition home or self-care (01) ==
LOC: INF 11:23
PROVIDERS: Visit Provider Family Medicine
DX: K57.20 Diverticulitis of large intestine with perforation and abscess without bleeding (principal)
CPT/HCPCS: 96365; J1335

== ENCOUNTER 2019-11-30 10:55 | Outpatient (CLI) | payer BC, SELFPAY ==
[2019-11-30 11:02] VITALS: BP 127/88; PULSE 69; RESP 18; TEMP 35.9; O2SAT 96
[2019-11-30 12:00] VITALS: BP 131/77; PULSE 68; RESP 18; O2SAT 97
== END 2019-11-30 12:00 | disposition home or self-care (01) ==
LOC: INF 10:57
PROVIDERS: Visit Provider Family Medicine
DX: K57.20 Diverticulitis of large intestine with perforation and abscess without bleeding (principal)
CPT/HCPCS: 96365; J1335

== ENCOUNTER 2019-12-01 10:50 | Outpatient (CLI) | payer BC, SELFPAY ==
[2019-12-01 11:10] VITALS: BP 138/89; PULSE 88; RESP 18; O2SAT 99
[2019-12-01 12:00] VITALS: BP 128/86; PULSE 89; RESP 20; O2SAT 100
== END 2019-12-01 12:00 | disposition home or self-care (01) ==
LOC: INF 10:55
PROVIDERS: Visit Provider Family Medicine
DX: K57.20 Diverticulitis of large intestine with perforation and abscess without bleeding (principal)
CPT/HCPCS: 96365; J1335

== ENCOUNTER 2019-12-02 12:31 | Outpatient (CLI) | payer BC, SELFPAY ==
[2019-12-02 12:39] VITALS: BP 129/83; PULSE 68; RESP 18; TEMP 36.9; O2SAT 98
[2019-12-02 13:20] VITALS: BP 125/74; PULSE 70; RESP 16; TEMP 36.9; O2SAT 99
== END 2019-12-02 13:20 | disposition home or self-care (01) ==
LOC: INF 12:31
PROVIDERS: Visit Provider Family Medicine
DX: K57.20 Diverticulitis of large intestine with perforation and abscess without bleeding (principal)
CPT/HCPCS: 96365; J1335

== ENCOUNTER → 2019-12-03 10:04 | Outpatient (CLI) | payer BC, SELFPAY ==
[2019-12-03 10:23] VITALS: BP 110/70; PULSE 66; RESP 16; TEMP 36.9; O2SAT 97
[2019-12-03 11:00] VITALS: BP 110/70; PULSE 66; RESP 16; TEMP 36.9; O2SAT 97
== END ==
PROVIDERS: PCP Physician Assistant; Visit Provider Family Medicine
DX: K57.20 Diverticulitis of large intestine with perforation and abscess without bleeding (principal)
CPT/HCPCS: 96365; J1335

== ENCOUNTER → 2019-12-04 15:03 | Outpatient (CLI) | payer BC, SELFPAY ==
[2019-12-04 15:12] VITALS: BP 125/81; RESP 16; TEMP 36.8
== END ==
PROVIDERS: PCP Physician Assistant; Visit Provider Family Medicine
DX: K57.20 Diverticulitis of large intestine with perforation and abscess without bleeding (principal)
CPT/HCPCS: 96365; J1335

== ENCOUNTER 2019-12-05 12:04 | Outpatient (CLI) | payer BC, SELFPAY ==
[2019-12-05 12:09] VITALS: BP 121/73; PULSE 69; RESP 18; TEMP 36.6; O2SAT 98
[2019-12-05 12:45] VITALS: BP 129/74; PULSE 72; RESP 16; TEMP 36.6; O2SAT 99
== END 2019-12-05 12:50 | disposition home or self-care (01) ==
LOC: INF 12:04
PROVIDERS: Visit Provider Family Medicine
DX: K57.20 Diverticulitis of large intestine with perforation and abscess without bleeding (principal)
CPT/HCPCS: 96365; J1335

== ENCOUNTER 2019-12-06 11:38 | Outpatient (CLI) | payer BC, SELFPAY ==
[2019-12-06 11:41] VITALS: BP 136/78; PULSE 75; RESP 18; TEMP 36.8; O2SAT 98
[2019-12-06 12:25] VITALS: BP 124/72; PULSE 72; RESP 18; TEMP 36.7; O2SAT 99
== END 2019-12-06 12:25 | disposition home or self-care (01) ==
LOC: INF 11:38
PROVIDERS: Visit Provider Family Medicine
DX: K57.20 Diverticulitis of large intestine with perforation and abscess without bleeding (principal)
CPT/HCPCS: 96365; J1335

== ENCOUNTER 2019-12-07 10:44 | Outpatient (CLI) | payer BC, SELFPAY ==
[2019-12-07 10:55] VITALS: BP 118/78; PULSE 72; RESP 18; TEMP 36.3; O2SAT 97
[2019-12-07 11:43] VITALS: BP 128/77; PULSE 68; RESP 18; O2SAT 98
== END 2019-12-07 11:43 | disposition home or self-care (01) ==
LOC: INF 10:44
PROVIDERS: Visit Provider Family Medicine
DX: K57.92 Diverticulitis of intestine, part unspecified, without perforation or abscess without bleeding (principal)
CPT/HCPCS: 96365; J1335

== ENCOUNTER 2019-12-08 10:42 | Outpatient (CLI) | payer BC, SELFPAY ==
[2019-12-08 10:56] VITALS: BP 139/87; PULSE 77; RESP 18; TEMP 36.6; O2SAT 99
[2019-12-08 11:50] VITALS: BP 129/74; PULSE 80; RESP 18; TEMP 36.6; O2SAT 98
== END 2019-12-08 11:50 | disposition home or self-care (01) ==
LOC: INF 10:42
PROVIDERS: Visit Provider Family Medicine
DX: K57.20 Diverticulitis of large intestine with perforation and abscess without bleeding (principal)
CPT/HCPCS: 96365; J1335

== ENCOUNTER 2019-12-14 10:15 | Outpatient (CLI) | payer BC, SELFPAY | END 2019-12-14 10:45 | disposition home or self-care (01) | LOC: INF 10:24 | PROVIDERS: Visit Provider Family Medicine | DX: K57.92 Diverticulitis of intestine, part unspecified, without perforation or abscess without bleeding (principal) | CPT/HCPCS: 96523 ==

== ENCOUNTER 2019-12-21 08:00 | Outpatient (CLI) | payer BC, SELFPAY | END 2019-12-21 08:20 | disposition home or self-care (01) | LOC: INF 08:09 | PROVIDERS: Visit Provider Family Medicine | DX: Z45.2 Encounter for adjustment and management of vascular access device (principal) | CPT/HCPCS: 96523 ==

== ENCOUNTER 2019-12-27 08:06 | Outpatient (CLI) | payer BC, SELFPAY ==
[2019-12-27 08:07] VITALS: BMI 34.7
[2019-12-27 08:28] LABS: Basophils # 0.1 K/mm3 (0-0.2); Basophils % 0.8 % (0.1-2.0); Eosinophils # 0.1 K/mm3 (0.0-0.4); Eosinophils % 1.5 % (0.1-12.0); Hematocrit 33.8 % (37.0-47.0); Hemoglobin 10.9 g/dL (12.2-16.2); Lymphocytes # 1.5 K/mm3 (0.7-4.5); Lymphocytes % 20.9 % (10-50); Mean Corpuscular HGB Conc 32.3 g/dL (31.8-35.4); Mean Corpuscular Hemoglobin 26.5 pg (27.0-31.2); Mean Platelet Volume 8.5 fl (7.4-10.4); Monocytes # 0.5 K/mm3 (0.1-1.0); Monocytes % 6.9 % (1.7-9.3); Neutrophils # 4.8 K/mm3 (1.8-7.8); Neutrophils % 69.8 % (37.0-80.0); Platelet Count 230 K/mm3 (142-424); Red Blood Count 4.12 M/mm3 (4.20-5.40); Red Cell Distribution Width 15.3 % (11.5-17.5); White Blood Count 6.9 K/mm3 (4.8-10.8)
[2019-12-27 08:32] LABS: Chloride 105 mmol/L (98-107); Potassium 3.7 mmoL/L (3.5-5.1); Sodium 140 mmol/L (136-145)
[2019-12-27 08:35] LABS: Anion Gap 11.7 mEq/L (5-15); Blood Urea Nitrogen 10 mg/dl (7-17); Carbon Dioxide 27 mmol/L (22.0-30.0); Creatinine Clearance Estimated 164 mL/min (50-200); Estimated Glomerular Filt Rate 93 ml/min (>60); GFR (African American) 112 ML/MIN (>60)
[2019-12-27 08:36] LABS: Calcium 9.1 mg/dl (8.4-10.2); Glucose 94 mg/dl (74-100)
[2019-12-27 08:45] LABS: HCG Qualitative, Serum Negative (Negative)
== END 2019-12-27 08:40 | disposition home or self-care (01) ==
LOC: INF 08:06
PROVIDERS: Visit Provider Surgery
DX: K57.92 Diverticulitis of intestine, part unspecified, without perforation or abscess without bleeding (principal)
CPT/HCPCS: 80048; 84703; 85025; 86850

== ENCOUNTER 2019-12-28 11:12 | Inpatient (IN) | payer BC, SELFPAY ==
[2019-12-26 11:11] VITALS: BMI 34.7
[2019-12-28] VITALS (32 sets, daily range): BP systolic 95–169; BP diastolic 46–118; PULSE 65–87; RESP 10–20; TEMP 36.5–43; O2SAT 90–100; BMI 34.0
[2019-12-28 07:12] LABS: Urine Pregnancy, HCG Qual. Negative (Negative)
[2019-12-28 07:29] LABS: Coronavirus 19 IgG Antibody Negative (Negative); Coronavirus 19 IgM Antibody Negative (Negative)
--- NOTE | 2019-12-28 08:21 | P.PN_ITS ---
[facility] Anesthesia Checklist - Structural Data Admitted From: Home Planned Operative Procedure/s: colon resection Consent for Planned Operative Procedure(s) Verified: Yes - Additional verifications Anesthesia Reactions: No Hx Blood Transfusions: No Blood Transfusion Reaction: No - Airway Assessment C-Spine Mobility Assessed: Yes TMJ Mobility Assessed: Yes Dentition: Good Dentition - Neurological Assessment Level of Consciousness: Awake, Alert, Appropriate - Anesthesia Plan Anesthesia Risk discussed: Yes Anesthesia Plan: Verified ASA Class: II Anesthesia Type: General [facility] History I have reviewed the patient's past medical history: Yes Medical History: Reports:: Anxiety, Cancer, Depression, Hypertension Denies:: Diabetes Mellitus Type 1, Diabetes Mellitus Type 2, Internal Pacemaker, MRSA, Seizures *Have you ever received a pneumonia vaccine?: No *Have you received a flu vaccine this season?: No Other Medical History: Reports: Anemia. Denies: Blood Transfusion Reaction Anesthesia experience/problems:: none Other Surgeries: Yes: Cholecystectomy, Colonoscopy, Dilation and Curettage, Tubal Ligation, Other. 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
--- NOTE | 2019-12-28 09:58 | P.OP_ITS ---
Date of procedure: 12/28/19 Pre-op Diagnosis:: Recurrent diverticulitis Post-op Diagnosis:: Same Procedure performed:: Partial left colectomy Surgeon:: Ryan Medina MD Research Laboratory Specialist(s):: Dr. Clayton Jasmine ASSEMBLER FITTER:: Tolu Faith Anesthesia: GETA Estimated blood loss (mL): 150 Operative findings:: Focal inflammatory response and thickening along distal left colon Operative note:: After informed consent was obtained the patient was taken to the operating room and placed in the supine position. General anesthesia was induced and her abdomen and perineal region were prepped and draped in a sterile fashion. A midline laparotomy incision was made. The abdomen was entered. Careful inspection and palpation revealed focal thickening along the left distal colon. The left colon was elevated and retracted medially this lateral attachments were carefully taken down with electrocautery. As the left colon was elevated the focal area of thickening and obvious diverticulitis was increasingly apparent. A transection site proximal and distal to the affected region was chosen. A window was made in the mesentery at the colonic margin both proximally and distally. A TAYA stapling device was utilized to transect the distal left colon slowly to the affected region. The Enseal device was then utilized to take down the mesentery. The portion of the distal left colon was marked for identification (suture placed on distal margin) and passed off for pathologic evaluation. The left colon and sigmoid colon were then brought into end-to-end apposition. The staple margins were removed with electrocautery. An external layer of interrupted 3-0 Nurolon was placed along the posterior serosal margin. Running 3-0 Vicryl was then utilized to complete the mucosal anastomosis. 3-0 Nurolon was then placed in an interrupted fashion along the anterior serosal margin. The abdominal cavity was thoroughly irrigated. No sign of active bleeding or injury was noted. Fascia was then reapproximated with #2 Novafil. Skin was closed with delio and dressings were applied. The patient's anesthetic agents were reversed and she was extubated prior to transfer to recovery. Condition: stable Disposition: PACU Specimens:: Partial left colon Complications:: No immediate
--- NOTE | 2019-12-28 10:07 | P.PN_ITS ---
[facility] Anesthesia Record Part I Intake, IV Amount: 1,900 Estimated blood loss (mL): 150 Urine output (mL): 200 Blood Pressure: 132/89 SaO2: 90 Pulse Rate: 83 Respiratory Rate: 10 Temperature: 99.6 F Patient is:: Awake, Drowsy, Stable Stable to PACU at:: 10:00
--- NOTE | 2019-12-28 12:04 | HMH.PHAVTE ---
[facility] Pharmacy VTE Monitoring - Patient Demographics Admission date: 12/28/19 Report Date: 12/28/19 Time: 12:04 Allergies/Adverse Reactions: Patient Allergies Penicillins Allergy (Severe, Verified 12/27/19 09:26) Hives cefaclor Allergy (Intermediate, Verified 12/27/19 09:26) Rash Sulfa (Sulfonamide Antibiotics) Allergy (Intermediate, Verified 12/27/19 09:26) Rash amoxicillin Allergy (Verified 12/27/19 09:26) rash egg Allergy (Verified 12/27/19 09:26) choking Height: 1.68 m Weight: 97.522 kg - Prophylaxis VTE Prophylaxis Ordered?: Yes Types of VTE Prophylaxis: TEDS Knee High, IPCS Thigh High Location of Applied Device: Bilateral Lower Extremeties
[2019-12-28 12:19] LABS: Microscopic,Cath URINE MICROSCOPIC (MICROSCOPIC)
[2019-12-28 12:26] LABS: Appearance,Urine/Cath CLEAR (Clear); Bilirubin,Cath Negative (Negative); Blood, Urine/Cath 1+ (Negative); Color,Urine/Cath YELLOW (Yellow); Glucose,Urine/Cath (UA) Negative (Negative); Ketones,Urine/Cath TRACE (Negative); Leukocyte Esterase,Cath Negative (Negative); Nitrate,Cath Negative (Negative); Protein,Urine/Cath Negative (Negative); Specific Gravity, Urine/Cath >= 1.030 (1.005-1.030); Urobilinogen,Cath 0.2 EU/dl (0.2)
[2019-12-28 12:45] LABS: Bacteria,Urine/Cath TRACE /lpf; Mucus,Urine/Cath Trace /lpf
--- NOTE | 2019-12-28 13:09 | PC.NURSE ---
ONLINE PRODUCER dose increased to 1.5 mg per JUL @ 1300. H DONNA Crandall witnessed dose change.
--- NOTE | 2019-12-28 14:47 | HMH.PHAINT ---
HOME MEDICATION RECONCILIATION COMPLETED USING LIST FROM PREVIOUS DISCHARGE AND PT INTERVIEW.
--- NOTE | 2019-12-28 14:52 | PC.NURSE ---
Pt resting in bed w/ O2 on 2 L NC. Pt states acceptable pain goal of 4. Pt reports pain level of 4/10 after admin of IV dilaudid, given per JUL. LIGHT TRUCK DRIVER continues w/ Morphine @ 1.5 mg (see MAR). Abdominal surgical incision intact w/ small serosang drainage noted at umbilicus. Pt remains NPO at this time. Mouth swabs provided as well as lip moisturizer. Waldron draining clear straw colored urine. Denies passing flatus yet at this time. Scuds in place to BLE. at bedside. LIGHT TRUCK DRIVER button and call plata w/in reach. Non-skids in place. Bed alarm in place for pt's safety.
--- NOTE | 2019-12-28 18:42 | PC.NURSE ---
Pt's pain has been much better controlled since IV dilaudid added to MAR. Has received twice thus far. Midline incision remains unchanged since prev assessment. Use of incentive spirometer discussed w/ return demonstration. Waldron cath draining clear yellow urine. at bedside. No needs at this time.
--- NOTE | 2019-12-28 19:10 | PC.NURSE ---
report given to farooq
--- NOTE | 2019-12-28 19:30 | PC.NURSE ---
CLEARED GROUP INSURANCE SPECIAL AGENT PUMP David POND RN. 13MG CLEARED FROM HISTORY. PT TOLERATING WELL.
[2019-12-29] VITALS (13 sets, daily range): BP systolic 98–144; BP diastolic 50–89; PULSE 68–83; RESP 16–18; TEMP 36.5–37.2; O2SAT 90–95; BMI 34.0
--- NOTE | 2019-12-29 02:49 | PC.NURSE ---
A&OX4. PT HAS TOLERATED ROOM AIR WELL THROUGHOUT SHIFT. RESPIRATIONS REGULAR AND UNLABORED. LUNG SOUNDS BILATERALLY CLEAR. NO COUGH NOTED. PT HAS BEEN ENCOURAGED TO USE THE INCENTIVE SPIROMETER 10 TIMES EVERY HOUR WHILE AWAKE. HAND ASSOCIATION EXECUTIVE EQUAL. +2 PULSES NOTED THROUGHOUT. NO EDEMA NOTED. HYPOACTIVE BOWEL SOUNDS HEARD IN ALL 4 QUADRANTS. SOFT AND TENDER ABDOMEN. PT STATES SHE HASN'T HAD ANY FLATUS OR BM THUS FAR THIS SHIFT. DRESSING NOTED TO ABDOMEN R/T L COLECTOMY. SCANT SEROSANGUINEOUS DRAINAGE NOTED TO UMBILICUS REGION. WILL CONTINUE TO MONITOR. PICC NOTED TO L UPPER ARM W LR INFUSING AT 150ML/HR. PT IS ON DRUM LOADER AND UNLOADER PUMP AND HAS TOLERATED WELL. PT HAS HAD SEVERAL REPORTS OF PAIN THIS SHIFT AND HAS RECEIVED DILAUDID 0.5 MG EVERY 2 HOURS NEEDED. ON REASSESSMENT, PT STATED PAIN WAS TOLERABLE. PT ALSO HAD AN EPISODE OF NAUSEA AND WAS ADMINISTERED ZOFRAN 2MG. ON REASSESSMENT, PT STATED NAUSEA HAD EASED. MOTHER HAS REMAINED AT BEDSIDE. CRUZ CATH INTACT W YELLOW URINE FLOWING FREELY INTO CATHETER BAG. NO KINKS NOTED. SCUDS IN PLACE. PT MOVES INDEPENDENTLY IN BED. PT HAS REMAINED AFERBILE. PT HASN'T SLEPT MUCH THIS SHIFT. SHE IS CURRENTLY LYING IN BED W CALL LIGHT WITHIN REACH. BED IN LOWEST POSITION. VSS. NO CONCERNS AT THIS TIME. WILL CONTINUE TO MONITOR.
[2019-12-29 06:53] LABS: Basophils % 0.1 % (0.1-2.0); Eosinophils % 0.2 % (0.1-12.0); Hematocrit 29.2 % (37.0-47.0); Hemoglobin 9.3 g/dL (12.2-16.2); Lymphocytes # 1.1 K/mm3 (0.7-4.5); Lymphocytes % 9.4 % (10-50); Mean Corpuscular HGB Conc 31.7 g/dL (31.8-35.4); Mean Corpuscular Hemoglobin 26.4 pg (27.0-31.2); Mean Corpuscular Volume 83.4 fl (81-99); Mean Platelet Volume 8.9 fl (7.4-10.4); Monocytes # 0.6 K/mm3 (0.1-1.0); Monocytes % 5.4 % (1.7-9.3); Neutrophils % 84.9 % (37.0-80.0); Platelet Count 236 K/mm3 (142-424); Red Cell Distribution Width 15.4 % (11.5-17.5); White Blood Count 11.8 K/mm3 (4.8-10.8)
--- NOTE | 2019-12-29 06:58 | PC.NURSE ---
CLEARED GIVING OFFICER PUMP David CORTEZ RN. CLEARED 7.5MG FROM HISTORY. PT TOLERATING GIVING OFFICER PUMP WELL.
--- NOTE | 2019-12-29 06:59 | HMH.GSPN ---
Subjective Patient reports: no new complaints Progress Note: A&P (1) Diverticulitis Status: Acute Assessment and plan: Overall, doing well s/p partial left colectomy. d/c rodriguez ambulate f/u AM labs Current Visit: No Exam Vital signs and Labs for Last 24 Hours: Temp Pulse Resp BP Pulse Ox 98.4 F 71 16 113/52 L 95 12/29/19 06:00 12/29/19 06:00 12/29/19 06:00 12/29/19 06:00 12/29/19 06:00 Laboratory Results - last 24 hr 12/28/19 06:50: Urine HCG, Qual Negative 12/28/19 06:50: SARS-CoV-2 IgG Ab (Rapid) Negative, SARS-CoV-2 IgM Ab (Rapid) Negative 12/28/19 07:40: Urine Color Yellow, Urine Appearance Clear, Urine pH 6.0, Ur Specific [place] >= 1.030, Urine Protein Negative, Urine Glucose (UA) Negative, Urine Ketones Trace, Urine Blood 1+, Urine Nitrate Negative, Urine Bilirubin Negative, Urine Urobilinogen 0.2, Ur Leukocyte Esterase Negative, Urine RBC 5-10, Urine WBC 5-10, Ur Squamous Epith Cells 5-10, Ur Transition Epith Cell 3-5, Urine Bacteria Trace I & O for Last 24 hours: Intake & Output 12/26/19 12/27/19 12/28/19 12/29/19 11:59 11:59 11:59 11:59 Intake Total 1900 / 1900 2363 / 2363 Output Total 1300 / 1300 Balance 1900 / 1900 1063 / 1063 Weight 215 lb 210 lb 7 oz 212 lb - Constitutional no acute distress - *Routine Respiratory Exam Absent: respiratory distress - *Routine Cardiovascular Exam Present: RRR - *Routine Abdominal Exam Comments: dressing intact
[2019-12-29 07:25] LABS: Anion Gap 10.6 mEq/L (5-15); Blood Urea Nitrogen 7 mg/dl (7-17); Calcium 8.4 mg/dl (8.4-10.2); Carbon Dioxide 29 mmol/L (22.0-30.0); Chloride 101 mmol/L (98-107); Creatinine Clearance Estimated 227 mL/min (50-200); Estimated Glomerular Filt Rate 137 ml/min (>60); GFR (African American) 165 ML/MIN (>60); Glucose 101 mg/dl (74-100); Potassium 3.6 mmoL/L (3.5-5.1); Sodium 137 mmol/L (136-145)
--- NOTE | 2019-12-29 11:44 | P.PN_ITS ---
[facility] Anesthesia Record Part II Discharge Time: 11:24 Destination: Medical Surgical Department PACU nurse assessment reviewed?: Yes Patient Condition:: Good Anesthesia Complications:: None Swallowing reflex intact?: Yes Cyanosis?: No Blood Pressure: 144/89 Pulse Rate: 70 Temperature: 97.8 F Mental Status: Alert & Oriented Pain level:: 5 Nausea and/or vomitting:: None Intake, IV Amount: 0
--- NOTE | 2019-12-29 12:00 | PC.NURSE ---
Pt's rodriguez removed by manager nursing home w/ supervision of nursing clinical director and this nurse. Since removal pt has voided and ambulated to bathroom, tolerating well. Pt is currently resting in bed w/ mother at bedside. No needs voiced at this time.
--- NOTE | 2019-12-29 18:06 | PC.NURSE ---
STRING WINDING MACHINE OPERATOR pump cleared at this time w/ A DONNA Gamez. Pt has used 8.4 mg this shift, tolerating well.
--- NOTE | 2019-12-29 19:35 | PC.NURSE ---
Pt has ambulated in room and to go to bathroom w/ assistance of staff multiple times today, tolerating well. Uses pillow to splint incision. Voiding w/o difficulty. LEAD ETL DEVELOPER remains in use. Call plata and LEAD ETL DEVELOPER button w/in reach. No needs voiced. Report given to Ora Vargas RN
[2019-12-30] VITALS (10 sets, daily range): BP systolic 111–151; BP diastolic 65–88; PULSE 70–109; RESP 16–18; TEMP 36.7–37.3; O2SAT 91–100; BMI 34.4
--- NOTE | 2019-12-30 02:46 | PC.NURSE ---
A&OX4. PT HAS TOLERATED ROOM AIR WELL THROUGHOUT SHIFT. RESPIRATIONS REGULAR AND UNLABORED. LUNG SOUNDS BILATERALLY CLEAR. NO COUGH NOTED. ENCOURAGED PT TO USE INCENTIVE SPIROMETER 10 TIMES EVERY HOUR WHILE AWAKE. HYPOACTIVE BOWEL SOUNDS HEARD IN ALL 4 QUADRANTS. NO FLATUS REPORTED OR BM. PT STATES SHE HAS BELCHED SOME. SOFT AND TENDER ABDOMEN. DRESSING NOTED TO MIDLINE OF ABDOMEN R/T L COLECTOMY ON 12/28/19. SCANT SEROSANGENOUS DRAINAGE NOTED TO UMBILICUS REGION. HASN'T CHANGED SINCE I HAD HER THE PREVIOUS SHIFT ON 12/28/19. PT WALKS INDEPENDENTLY TO THE RESTROOM. BRIGHT YELLOW URINE NOTED IN MEASURING HAT. HAND SUPERVISOR SCRAP PREPARATION EQUAL. +2 PULSES NOTED THROUGHOUT. NO EDEMA NOTED. SCUDS IN PLACE. OWNER/OPERATOR PUMP IN USE. PT HAS REPORTED PAIN AND NAUSEA SEVERAL TIMES THROUGHOUT THE SHIFT. SHE HAS RECEIVED DILAUDID 0.5MG, ZOFRAN 2MG, OR PHENERGAN 12.5 MG PER MAR. ON REASSESSMENT, PT STATED PAIN WAS TOLERABLE OR WAS RESTING W EYES CLOSED. SHE ALSO STATED NAUSEA HAD EASED. PT HAS REMAINED NPO. PT MOVES INDEPENDENTLY IN THE BED. PT HASN'T SLEPT VERY WELL THIS SHIFT. SHE IS CURRENTLY SITTING IN BED W CALL LIGHT WITHIN REACH. BED IN LOWEST POSITION. VSS. WILL CONTINUE TO MONITOR.
--- NOTE | 2019-12-30 05:38 | PC.NURSE ---
CLEARED NETWORK DESIGN ARCHITECT PUMP HISTORY David WRIGHT RN. CLEARED 4.5MG.
[2019-12-30 06:14] LABS: Basophils # 0.1 K/mm3 (0-0.2); Basophils % 0.6 % (0.1-2.0); Eosinophils # 0.1 K/mm3 (0.0-0.4); Eosinophils % 0.9 % (0.1-12.0); Hemoglobin 8.4 g/dL (12.2-16.2); Lymphocytes # 2.1 K/mm3 (0.7-4.5); Lymphocytes % 25.8 % (10-50); Mean Corpuscular HGB Conc 31.3 g/dL (31.8-35.4); Mean Corpuscular Hemoglobin 26.2 pg (27.0-31.2); Mean Platelet Volume 8.5 fl (7.4-10.4); Monocytes # 0.6 K/mm3 (0.1-1.0); Monocytes % 7.7 % (1.7-9.3); Neutrophils # 5.3 K/mm3 (1.8-7.8); Platelet Count 194 K/mm3 (142-424); Red Blood Count 3.21 M/mm3 (4.20-5.40); Red Cell Distribution Width 15.5 % (11.5-17.5); White Blood Count 8.2 K/mm3 (4.8-10.8)
[2019-12-30 06:23] LABS: Chloride 102 mmol/L (98-107); Potassium 3.4 mmoL/L (3.5-5.1); Sodium 136 mmol/L (136-145)
[2019-12-30 06:26] LABS: Anion Gap 7.4 mEq/L (5-15); Blood Urea Nitrogen 9 mg/dl (7-17); Calcium 8.1 mg/dl (8.4-10.2); Carbon Dioxide 30 mmol/L (22.0-30.0); Creatinine Clearance Estimated 164 mL/min (50-200); Estimated Glomerular Filt Rate 93 ml/min (>60); GFR (African American) 112 ML/MIN (>60); Glucose 71 mg/dl (74-100)
--- NOTE | 2019-12-30 08:13 | HMH.GSPN ---
Subjective Patient reports: no new complaints, still having pain, no flatus, no bowel movement Progress Note: A&P (1) Diverticulitis Status: Acute Assessment and plan: overall, doing well s/p partial left colectomy continue ambulation await return of bowel function sips and chips sugarless gum Current Visit: No (2) Postoperative anemia Status: Acute Current Visit: Yes (3) Anemia Status: Acute Assessment and plan: recent baseline anemia noted...no sign of active blood loss H/H at 14:00 Current Visit: No Exam Vital signs and Labs for Last 24 Hours: Temp Pulse Resp BP Pulse Ox 98.4 F 77 16 121/79 97 12/30/19 06:00 12/30/19 06:00 12/30/19 06:00 12/30/19 06:00 12/30/19 06:00 Laboratory Results - last 24 hr 12/30/19 05:45: WBC 8.2 D, RBC 3.21 L, Hgb 8.4 L, Hct 27.0 L, MCV 84.0, MCH 26.2 L, MCHC 31.3 L, RDW 15.5, Plt Count 194, MPV 8.5, Neut % (Auto) 65.0, Lymph % (Auto) 25.8, [place] % (Auto) 7.7, Eos % (Auto) 0.9, Baso % (Auto) 0.6, Neut # (Auto) 5.3, Lymph # (Auto) 2.1, [place] # (Auto) 0.6, Eos # (Auto) 0.1, Baso # (Auto) 0.1 12/30/19 05:45: Sodium 136, Potassium 3.4 L, Chloride 102, Carbon Dioxide 30, Anion Gap 7.4, BUN 9 D, Creatinine 0.70 D, Estimated Creat Clear 164, Estimated GFR 93, Est GFR ( Amer) 112 D, Glucose 71 L D, Calcium 8.1 L I & O for Last 24 hours: Intake & Output 12/27/19 12/28/19 12/29/19 12/30/19 11:59 11:59 11:59 11:59 Intake Total 1899 2363 / 2363 2664 / 2664 Output Total 2049 475 / 475 Balance 1899 313 / 313 2189 / 2189 Weight 210 lb 7 oz 212 lb 214 lb 4 oz - Constitutional no acute distress - *Routine Respiratory Exam Absent: respiratory distress - *Routine Cardiovascular Exam Present: RRR - *Routine Abdominal Exam Present: soft Comments: Incision clean, dry, and intact. No erythema.
[2019-12-30 14:23] LABS: Hematocrit 26.6 % (37.0-47.0); Hemoglobin 8.7 g/dL (12.2-16.2)
--- NOTE | 2019-12-30 19:09 | PC.NURSE ---
report given to edgar
--- NOTE | 2019-12-30 19:38 | PC.NURSE ---
PATIENT A&O X4, LUNGS CLEAR, PUSLES EQUAL, INCISION CLEAN, DRY AND INTACT, NO DRAINAGE NOTED. PATIENT AMBULATED 2X DURING THIS RN SHIFT. NO PASSING GAS DURING THIS SHIFT. THIS RN EDUCATED PATIENT THE IMPORTANCE OF AMBULATING AND USING HER IS. PATIENT VERBALIZED AN UNDERSTANDING. PATIENT RECEIVED 10.5 MG OF MORPHINE FROM CLINICAL STUDIES SPECIALIST PUMP. PATIENT REQUESTED DILAUDID EVERY 2-3 HRS. PATIENT'S VITAL WNL DURING CLINICAL STUDIES SPECIALIST USAGE. NO OTHER CONCERNS AT THIS TIME.
[2019-12-31] VITALS (17 sets, daily range): BP systolic 133–171; BP diastolic 62–92; PULSE 63–78; RESP 14–19; TEMP 36.6–37.5; O2SAT 92–100; BMI 34.6
--- NOTE | 2019-12-31 03:05 | PC.NURSE ---
Pt has slept intermittently this shift. Has required regular administrations of Dilaudid for breakthrough pain. DRYCLEANER medication continues. Denies shortness of breath. Mother at bedside. Incision appears well-approximated, no drainage noted.
--- NOTE | 2019-12-31 06:32 | PC.NURSE ---
STATEMENT CLERKS MANAGER shift total 6mg cleared
--- NOTE | 2019-12-31 09:02 | HMH.GSPN ---
Subjective Narrative: Patient has had some soreness and nausea but no vomiting. She is ambulating. Has not passed any flatus. Progress Note: A&P (1) Diverticulitis Status: Acute Current Visit: No (2) Postoperative anemia Status: Acute Current Visit: Yes (3) Anemia Status: Acute Current Visit: No Assessment and Plan for All Diagnoses:: Awaiting return of bowel function. Continue ambulation. Limit to ice chips and chewing gum. Recheck blood work tomorrow. Exam Vital signs and Labs for Last 24 Hours: Temp Pulse Resp BP Pulse Ox 98.4 F 72 17 148/80 H 100 12/31/19 08:00 12/31/19 08:00 12/31/19 08:00 12/31/19 08:00 12/31/19 08:00 Laboratory Results - last 24 hr 12/30/19 14:05: Hgb 8.7 L, Hct 26.6 L I & O for Last 24 hours: Intake & Output 12/28/19 12/29/19 12/30/19 12/31/19 11:59 11:59 11:59 11:59 Intake Total 1900 / 1900 2363 / 2363 2664 / 2664 2408 / 2408 Output Total 2049 / 2049 1175 / 1175 2600 / 2600 Balance 1900 / 1900 313 / 313 1489 / 1489 -192 / -192 Weight 210 lb 7 oz 212 lb 214 lb 4 oz 215 lb 5 oz - *Routine Abdominal Exam Present: soft Comments: Incision clean. Hypoactive bowel sounds
--- NOTE | 2019-12-31 18:29 | PC.NURSE ---
Pt is alert and oriented and oriented and able to make needs known. RR even and unlabored. Has used PREPRESS PROOFER pump along with prn dilaudid per jul. Pt has been voiding well this shift and ambulating to restroom. Have encouraged pt to be up and ambulating. States that her belly is rumbling and gassy , BS are hyperactive. Surg incision samples looks good with no problems or s/s of infection. BP elevated earlier and now back down after prn dilaudid. Other vs stable. States pain is much better at this time. Will cont to mx this shift.
--- NOTE | 2019-12-31 19:00 | PC.NURSE ---
STEAMTABLE WORKER total doses this shift 7.6 mg.
[2020-01-01] VITALS (10 sets, daily range): BP systolic 114–164; BP diastolic 56–90; PULSE 68–75; RESP 14–18; TEMP 36.8–37.5; O2SAT 95–100; BMI 32.8
--- NOTE | 2020-01-01 04:17 | PC.NURSE ---
Alert and oriented x4. PERRLA. Pt c/o abdominal pain and nausea t/o shift. Administered Dilaudid for pain control Q2H per MAR and Phenergan Q6H x2 thus far this shift per JUL. Upon reassessment pt states adequate pain and nausea relief from both medications. Pt has also been using her Morphine COORDINATOR OF ONLINE PROGRAMS pump t/o shift for breakthrough pain. Thus far a total of 2 mg have been administered via COORDINATOR OF ONLINE PROGRAMS. Bilateral breath sounds noted clear t/o upon auscultation. Tolerated ra well with no c/o soa. Encouarged use of IS while awake this shift. Incision to abdomen noted C/D/I. No s/s infection noted, delio open to air. Bowel sounds noted active in all 4 quads upon auscultation. Denies having a BM this shift but states she is passing flatulence now. Adequate urine output noted. Urine noted clear and bright yellow in color. Ambulates independently to bathroom, tolerates well. Encouraged ambulation this shift. No edema noted. Refused teds. VSS. Remains safe. Call light within reach. Family member at bedside t/o shift. Will continue to monitor.
--- NOTE | 2020-01-01 07:51 | HMH.GSPN ---
Subjective Narrative: Patient complains of some gas pains and incisional pain. She did pass some flatus last night 3 or 4 times. No bowel movements. She still does have some nausea. Progress Note: A&P (1) Diverticulitis Status: Acute Current Visit: No (2) Postoperative anemia Status: Acute Current Visit: Yes (3) Anemia Status: Acute Current Visit: No Assessment and Plan for All Diagnoses:: Awaiting return of bowel function. We will add some simethicone. Check labs today which are still pending Exam Vital signs and Labs for Last 24 Hours: Temp Pulse Resp BP Pulse Ox 99.1 F 68 14 136/75 97 01/01/20 04:00 01/01/20 04:00 01/01/20 04:00 01/01/20 04:00 01/01/20 04:00 I & O for Last 24 hours: Intake & Output 12/29/19 12/30/19 12/31/19 01/01/20 11:59 11:59 11:59 11:59 Intake Total 2363 / 2363 2664 / 2664 2408 / 2408 2686 / 2686 Output Total 2049 / 2049 1175 / 1175 2600 / 2600 3750 / 3750 Balance 313 / 313 1489 / 1489 -192 / -192 -1064 / -1064 Weight 212 lb 214 lb 4 oz 215 lb 5 oz 204 lb 2 oz - *Routine Abdominal Exam Present: soft, normoactive bowel sounds
--- NOTE | 2020-01-01 08:12 | PC.NURSE ---
Total 3 mg Morphine administered via CERTIFIED TOWER CLIMBER this shift.
[2020-01-01 08:14] LABS: Chloride 98 mmol/L (98-107); Sodium 137 mmol/L (136-145)
[2020-01-01 08:15] LABS: Potassium 3.2 mmoL/L (3.5-5.1)
[2020-01-01 08:17] LABS: Blood Urea Nitrogen 3 mg/dl (7-17); Creatinine Clearance Estimated 219 mL/min (50-200); Estimated Glomerular Filt Rate 137 ml/min (>60); GFR (African American) 165 ML/MIN (>60)
[2020-01-01 08:20] LABS: Anion Gap 12.2 mEq/L (5-15); Basophils % 0.4 % (0.1-2.0); Calcium 8.9 mg/dl (8.4-10.2); Carbon Dioxide 30 mmol/L (22.0-30.0); Eosinophils # 0.1 K/mm3 (0.0-0.4); Eosinophils % 1.7 % (0.1-12.0); Glucose 108 mg/dl (74-100); Hematocrit 32.7 % (37.0-47.0); Hemoglobin 10.7 g/dL (12.2-16.2); Lymphocytes # 1.2 K/mm3 (0.7-4.5); Lymphocytes % 17.8 % (10-50); Mean Corpuscular HGB Conc 32.8 g/dL (31.8-35.4); Mean Corpuscular Hemoglobin 26.8 pg (27.0-31.2); Mean Corpuscular Volume 81.8 fl (81-99); Mean Platelet Volume 9.4 fl (7.4-10.4); Monocytes # 0.5 K/mm3 (0.1-1.0); Monocytes % 7.7 % (1.7-9.3); Neutrophils # 5.1 K/mm3 (1.8-7.8); Neutrophils % 72.4 % (37.0-80.0); Platelet Count 231 K/mm3 (142-424); Red Blood Count 3.99 M/mm3 (4.20-5.40); Red Cell Distribution Width 15.8 % (11.5-17.5)
--- NOTE | 2020-01-01 19:34 | PC.NURSE ---
Pt has had 4 mg morphine per remote recruiter this shift and intermittent prn Dilaudid. Have educated pt on use of pain med and slowing of bowels. Have also encouraged pt to ambulate in saeed. She has ambulated in room and showered today. Midline incision is cdi and guillermo. CB in reach. Pt states pain is better at this time and meade has improved as well. NAD. RR even and unlabored and is alert and oriented and able to make needs known. Have encouraged used of IS. PICC to JAKOB. Lovenox continues. States she has passes gas this am, no further gas and no bm this shift. BS active x 4 and soft abd.
[2020-01-02] VITALS (7 sets, daily range): BP systolic 123–160; BP diastolic 70–92; PULSE 66–86; RESP 14–18; TEMP 36.8–37; O2SAT 94–100; BMI 32.6
--- NOTE | 2020-01-02 02:35 | PC.NURSE ---
Alert and oriented x4. PERRLA. Bilateral hand collet gluer noted equal and strong. Cap refill < 3 seconds. No edema noted. Tolerated ra well with no c/o soa. Bilateral breath sounds noted clear t/o upon auscultation. RR noted even and unlabored. Encouraged use of incentive spirometer q1h while awake. Pt demonstrated appropriate use at beginning of shift. Pt noted restless t/o shift, rested with eyes closed intermittently. Pt c/o frequent ongoing intermittent pain. At most rates pain a 7/10 on pain scale. Administered Dilaudid x3 per MAR thus far. 3 mg of Morphine have been administered as well per EDGE STAINER MACHINE. Upon reassessments pt states adequate pain relief. Will continue to monitor and reassess. Encouraged pt upon receiving bedside report from previous shift to ambulate at least 4 times a day around the unit. Pt did ambulate 3 times around unit this shift, tolerated amb well but reports increase in pain. Denies passing flatulence or having bowel movement. Hyperactive bowel sounds noted in all 4 quads upon auscultation. Incision noted C/D/I to abdomen. [place] open to air. No s/s of infection. Amb independently in room and in halls. VSS. Remains safe. Call light within reach. Husbands remains at bedside. Will continue to monitor.
--- NOTE | 2020-01-02 06:44 | PC.NURSE ---
Total of 4 mg Morphine administered this shifte per FINISHING DEPARTMENT SUPERVISOR.
--- NOTE | 2020-01-02 07:25 | P.PN_ITS ---
Subjective Patient reports: feels better Narrative: Patient states that she feels better. Passing some flatus. No stool. Less bloating. Nausea resolved. Progress Note: A&P (1) Diverticulitis Status: Acute Current Visit: No (2) Postoperative anemia Status: Acute Current Visit: Yes (3) Anemia Status: Acute Current Visit: No Assessment and Plan for All Diagnoses:: Try some sips of clears. DC HEATER OPERATOR HELPER. Exam Vital signs and Labs for Last 24 Hours: Temp Pulse Resp BP Pulse Ox 98.3 F 71 15 125/84 96 01/02/20 06:00 01/02/20 06:00 01/02/20 06:00 01/02/20 06:00 01/02/20 06:00 Laboratory Results - last 24 hr 01/01/20 08:00: WBC 7.0, RBC 3.99 L, Hgb 10.7 L, Hct 32.7 L, MCV 81.8, MCH 26.8 L, MCHC 32.8, RDW 15.8, Plt Count 231, MPV 9.4, Neut % (Auto) 72.4, Lymph % (Auto) 17.8, [place] % (Auto) 7.7, Eos % (Auto) 1.7, Baso % (Auto) 0.4, Neut # (Auto) 5.1, Lymph # (Auto) 1.2, [place] # (Auto) 0.5, Eos # (Auto) 0.1, Baso # (Auto) 0.0 01/01/20 08:00: Sodium 137, Potassium 3.2 L, Chloride 98, Carbon Dioxide 30, Anion Gap 12.2, BUN 3 L D, Creatinine 0.50 L D, Estimated Creat Clear 219, Estimated GFR 137, Est GFR ( Amer) 165 D, Glucose 108 H, Calcium 8.9 I & O for Last 24 hours: Intake & Output 12/30/19 12/31/19 01/01/20 01/02/20 11:59 11:59 11:59 11:59 Intake Total 2664 / 2664 2408 / 2408 2686 / 2686 2009 Output Total 1175 / 1175 2600 / 2600 3750 / 3750 3550 / 3550 Balance 1489 / 1489 -192 / -192 -1064 / -1064 -1540 / -1540 Weight 214 lb 4 oz 215 lb 5 oz 204 lb 2 oz 203 lb 4 oz - *Routine Abdominal Exam Present: soft Comments: Incision clean. Hypoactive bowel sounds.
--- NOTE | 2020-01-02 08:25 | PC.NURSE ---
PATIENT FURNACE MECHANIC HELPER PUMP STOPPED
--- NOTE | 2020-01-02 17:40 | PC.NURSE ---
PT A0*4 AT THIS TIME, NO C/O N/V/D, PT HAS AMBULATED IN [place] MULTIPLE TIMES T/O SHIFT, HAS BEEN USING INCENTIVE SARA ORDERED. SLITTING MACHINE FEEDER PUMP REMOVED TODAY, PT HAS BEEN MEDICATED WITH 0.5 MG DULAUDID AND NORCO PER JUL, EFFECTIVENESS NOTED. STILL NO BOWEL MOVEMENT THIS SHIFT, HAS AMBULATED TO BATHROOM INDEPENDENTLY OUTPUT NOTED, ABDOMINAL INCISION C/D/I, OPEN TO AIR, ANA MARÍA IN PLACE, EDGES APPROXIMATED AND PINK, NO DRAINAGE NOTED, PT BOWEL SOUNDS ACTIVE *4, ABD SOFT, NON-TENDER, NON-DISTENDED, NO ISSUES AT THIS TIME, WILL CONTINUE TO MONITOR.
--- NOTE | 2020-01-02 19:15 | PC.NURSE ---
report given to farooq
[2020-01-03 03:59] VITALS: BP 160/80; PULSE 61; RESP 16; TEMP 36.7; O2SAT 97
[2020-01-03 05:00] VITALS: BMI 32.8
--- NOTE | 2020-01-03 05:39 | PC.NURSE ---
Pt has rested well, slept intermittently. Had an episode of one small blood clot when she urinated mid-shift, states she thinks it is her period. Pad and mesh panties provided. One episode of nausea with phenergan given. Bowel sounds continue to be hypoactive, has eaten only sips and chips sparingly as instructed by .
--- NOTE | 2020-01-03 06:49 | HMH.GSPN ---
Subjective Narrative: Overall patient does feel better. Her nausea had resolved. However, last night she did have an episode of some nausea and pain. Her bowels moved several times. Progress Note: A&P (1) Diverticulitis Status: Acute Current Visit: No (2) Postoperative anemia Status: Acute Current Visit: Yes (3) Anemia Status: Acute Current Visit: No Assessment and Plan for All Diagnoses:: Clear liquid diet this morning. May be able to advance to full liquid this afternoon if tolerated. Decrease IV fluids. Exam Vital signs and Labs for Last 24 Hours: Temp Pulse Resp BP Pulse Ox 98.0 F 61 16 160/80 H 97 01/03/20 03:59 01/03/20 03:59 01/03/20 03:59 01/03/20 03:59 01/03/20 03:59 I & O for Last 24 hours: Intake & Output 12/31/19 01/01/20 01/02/20 01/03/20 11:59 11:59 11:59 11:59 Intake Total 2408 / 2408 2686 / 2686 2009 494 / 494 Output Total 2600 / 2600 3750 / 3750 3550 / 3550 800 / 800 Balance -192 / -192 -1064 / -1064 -1540 / -1540 -306 / -306 Weight 215 lb 5 oz 204 lb 2 oz 203 lb 4 oz 204 lb 8 oz - *Routine Abdominal Exam Present: soft Comments: Incision clean and intact.
[2020-01-03 08:00] VITALS: BP 154/82; PULSE 68; RESP 17; TEMP 36.7; O2SAT 99
[2020-01-03 15:36] VITALS: BP 112/72; PULSE 74; RESP 20; TEMP 36.8; O2SAT 97
[2020-01-03 19:52] VITALS: BP 138/84; PULSE 75; RESP 18; TEMP 37.1; O2SAT 98
--- NOTE | 2020-01-03 20:22 | PC.NURSE ---
Pt alert and oriented and able to make needs known. RR even and unlabored. NAD. Has been medicated per jul. States she has had a couple bms this am. Has tolerated diet well this shift. VSS. Joy Anderson RN is going to change PICC dsg this shift to MAILE. CB in reach. Abd incision looks good, delio intact and no s/s infection.
[2020-01-04] VITALS: BP 133/76; PULSE 70; RESP 16; TEMP 36.9; O2SAT 98
--- NOTE | 2020-01-04 04:22 | PC.NURSE ---
Pt has rested well this shift, is hopeful to be discharged home this morning. Has required only one administration of norco and one of dilaudid thus far this shift. Incision well approximated with slight redness around delio. At umbilicus, scant amount of white nonpurulent drainage was noted and was cleaned with sterile water. Pt/spouse advised to monitor this area upon discharge for any changes in this drainage.
[2020-01-04 05:00] VITALS: BMI 33.3
[2020-01-04 08:00] VITALS: BP 138/79; PULSE 70; PULSE 80; RESP 19; TEMP 36.8; O2SAT 97
--- NOTE | 2020-01-04 08:29 | HMH.GSPN ---
Subjective Patient reports: feels better, flatus, bowel movement Narrative: has not received full liquid tray yet Progress Note: A&P (1) Diverticulitis Status: Acute Assessment and plan: Overall, doing well status post partial left colectomy. Assess tolerance of full liquid diet Possible discharge home later today Current Visit: No (2) Postoperative anemia Status: Acute Current Visit: Yes (3) Anemia Status: Acute Current Visit: No (4) Postoperative ileus Status: Resolved Assessment and plan: Essentially resolved Assess tolerance of full liquid diet Current Visit: Yes Exam Vital signs and Labs for Last 24 Hours: Temp Pulse Resp BP Pulse Ox 98.4 F 70 16 133/76 98 01/04/20 00:00 01/04/20 00:00 01/04/20 00:00 01/04/20 00:00 01/04/20 00:00 I & O for Last 24 hours: Intake & Output 01/01/20 01/02/20 01/03/20 01/04/20 11:59 11:59 11:59 11:59 Intake Total 2686 / 2686 2009 614 / 614 2687 / 2687 Output Total 3750 / 3750 3550 / 3550 800 / 800 1000 / 1000 Balance -1064 / -1064 -1540 / -1540 -186 / -186 1687 / 1687 Weight 204 lb 2 oz 203 lb 4 oz 204 lb 8 oz 207 lb - Constitutional no acute distress - *Routine Respiratory Exam Absent: respiratory distress - *Routine Cardiovascular Exam Present: RRR - *Routine Abdominal Exam Present: soft
[2020-01-04 11:47] VITALS: BP 131/88; PULSE 71; RESP 18; TEMP 36.8; O2SAT 98
[2020-01-04 12:00] VITALS: PULSE 70
--- NOTE | 2020-01-04 14:53 | HMH.DCSUM ---
General - General Admission date:: 12/28/19 Discharge date: 01/04/20 HPI HPI: This is a 39-year-old female with recurrent diverticulitis. Colonoscopy earlier this year revealed no significant abnormality. She recently recovered from complex diverticulitis (second episode within this calendar year) with small associated abscess. After discussion with patient concerning risks and benefits she chose to undergo surgical resection. Note: The patient is also currently undergoing evaluation for anemia. No definitive source has been identified; however, she does have what she describes as heavy menses . Hospital Course Hospital Course: She underwent partial left colectomy on the day of admission. Please see operative report for detail. Postoperatively, she progressed fairly well. She did have an ileus that was slightly prolonged. By postoperative day 5 she showed signs of initial bowel function return. Her diet was very slowly advanced. She remained afebrile with stable and normal vital signs and was deemed appropriate for discharge on the afternoon of postoperative day 7. Note: On the day of discharge she did have episodic heavy menses . She states that she is planning to be reevaluated by her mechanic senior within the next few weeks . Objective Vital signs: Temp Pulse Resp BP Pulse Ox 98.2 F 71 18 131/88 98 01/04/20 11:47 01/04/20 11:47 01/04/20 11:47 01/04/20 11:47 01/04/20 11:47 no acute distress - *Routine HEENT Exam Head: Present: normocephalic, atraumatic - *Routine Neck Exam Present: full ROM - Routine Chest/Breast/Axilla Exam Chest wall: Absent: tenderness - *Routine Respiratory Exam Absent: respiratory distress - *Routine Cardiovascular Exam Present: RRR - *Routine Abdominal Exam Present: soft - *Routine Rectal Exam Visual: Absent: cheli blood - *Routine Exam Groin: Absent: erythema - *Routine Extremities Exam Present: full ROM. Absent: cyanosis, clubbing - Routine Back/Spine/Pelvis Exam Back/Spine: Present: full ROM - *Routine Skin Exam Absent: erythema - *Routine Neurological Exam Present: alert, oriented X3 - Routine Psychiatric Exam Present: normal affect DS: Diagnosis - Discharge Diagnosis (1) Diverticulitis Status: Acute Problem details: Overall, doing well status post partial left colectomy. (2) Postoperative anemia Status: Acute (3) Anemia Status: Acute (4) Postoperative ileus Status: Resolved (5) Menorrhagia Status: Acute Problem details: Ongoing evaluation as per WINDOW SHADE INSTALLER Discharge Plan - Patient Discharge Instructions ACTIVITY: No heavy lifting DIET: other (slowly advance diet to soft ) Additional Instructions: Nursing Diagnosis: Knowledge Deficit Disease/Condition Goal(s): Education of disease process Instruction(s): Follow provider plan/instructions (See attached discharge education) Follow/up with primary care provider as instructed in discharge packet Patient Instructions: How to Care for a Surgical Wound, Colectomy -- Open Surgery, Anemia, DI for Diverticulitis, DI for Surgical Site Infection - Follow up Plan Follow up with: Ryan Medina MD [Staff Physician] - 01/11/20 1:15 pm Disposition: Home, Self-Assisted Medications: Home Medications Medication Instructions Recorded Confirmed Type fluticasone propionate 50 1 spray INTRANASAL HS 05/07/17 12/28/19 History mcg/actuation nasal spray,suspension sertraline 100 mg tablet 150 mg PO DAILY 01/31/19 12/28/19 History omeprazole 40 mg capsule,delayed 40 mg PO DAILY 06/29/19 12/28/19 History release propranolol 60 mg capsule,24 60 mg PO HS 06/29/19 12/28/19 History hr,extended release trazodone 50 mg tablet 100 mg PO HS 06/29/19 12/28/19 History ondansetron 4 mg disintegrating 4 mg PO Q6H PRN #30 tab 07/06/19 12/28/19 Rx tablet Lactobacillus Rhamnosus GG 1 each PO DAILY 11/21/19 08
== END 2020-01-04 15:21 | disposition home or self-care (01) | DRG 330 ==
LOC: 2ND 11:16
PROVIDERS: Surgery; Admitting Provider Surgery; PCP Physician Assistant; Visit Provider Surgery
PROC: 0DBG0ZZ Excision of Left Large Intestine, Open Approach (ICD-10-PCS; principal; 2019-12-28 07:30)
DX: K57.32 Diverticulitis of large intestine without perforation or abscess without bleeding (principal); K56.7 Ileus, unspecified; I10 Essential (primary) hypertension; D64.9 Anemia, unspecified
CPT/HCPCS: 44140; 36415; 80048; 81001; 81025; 85014; 85018; 85025; 86328; 96372; 96374; J1956; J2405; J2710

== ENCOUNTER 2020-01-11 09:22 | Outpatient (CLI) | payer BC, SELFPAY ==
[2020-01-11 09:19] VITALS: BMI 33.4
[2020-01-11 09:38] LABS: Hematocrit 33.1 % (37.0-47.0); Hemoglobin 10.9 g/dL (12.2-16.2)
== END 2020-01-11 09:38 | disposition home or self-care (01) ==
PROVIDERS: PCP Physician Assistant; Visit Provider Surgery
DX: K57.20 Diverticulitis of large intestine with perforation and abscess without bleeding (principal); Z45.2 Encounter for adjustment and management of vascular access device
CPT/HCPCS: 85014; 85018

== ENCOUNTER → 2021-04-23 19:05 | Outpatient (CLI) | payer BC, SELFPAY | PROVIDERS: Visit Provider Nurse Practitioner Family | DX: Z20.822 Contact with and (suspected) exposure to COVID-19 (principal) | CPT/HCPCS: C9803; U0003; U0005 ==

== ENCOUNTER → 2022-03-26 09:47 | Outpatient (CLI) | payer BC, SELFPAY ==
[2022-03-26 09:53] LABS: Microscopic, Urine URINE MICROSCOPIC (MICROSCOPIC)
[2022-03-26 10:49] LABS: Basophils # 0.1 K/mm3 (0-0.2); Basophils % 1.1 % (0.1-2.0); Eosinophils # 0.1 K/mm3 (0.0-0.4); Eosinophils % 1.6 % (0.1-12.0); Hematocrit 41.1 % (37.0-47.0); Lymphocytes # 1.8 K/mm3 (0.7-4.5); Lymphocytes % 23.3 % (10-50); Mean Corpuscular HGB Conc 31.7 g/dL (31.8-35.4); Mean Corpuscular Hemoglobin 27.7 pg (27.0-31.2); Mean Corpuscular Volume 87.3 fl (81-99); Mean Platelet Volume 8.7 fl (7.4-10.4); Monocytes # 0.4 K/mm3 (0.1-1.0); Monocytes % 4.8 % (1.7-9.3); Neutrophils # 5.3 K/mm3 (1.8-7.8); Neutrophils % 69.3 % (37.0-80.0); Platelet Count 333 K/mm3 (142-424); Red Cell Distribution Width 14.6 % (11.5-17.5); White Blood Count 7.7 K/mm3 (4.8-10.8)
[2022-03-26 10:53] LABS: Chloride 102 mmol/L (98-107)
[2022-03-26 10:54] LABS: Potassium 4.4 mmoL/L (3.5-5.1); Sodium 139 mmol/L (136-145)
[2022-03-26 10:56] LABS: Alanine Aminotransferase 16 U/L (12-78); Aspartate Amino Transferase 19 U/L (14-36); Blood Urea Nitrogen 13 mg/dl (7-17); Estimated Glomerular Filt Rate 92 ml/min (>60); GFR (African American) 111 ML/MIN (>60)
[2022-03-26 10:57] LABS: Albumin Level 4.3 g/dl (3.5-5.0); Albumin/Globulin Ratio 1.6 (1.1-1.8); Alkaline Phosphatase 86 U/L (38-126); Anion Gap 9.4 mEq/L (5-15); Bilirubin,Total 0.3 mg/dl (0.2-1.3); Calcium 9.9 mg/dl (8.4-10.2); Carbon Dioxide 32 mmol/L (22.0-30.0); Chol/HDL Ratio 6.5 (1-3.5); Cholesterol 253 mg/dl (140-200); Globulin 2.7 g/dL (1.3-3.2); Glucose 103 mg/dl (74-100); HDL Cholesterol 39 mg/dl (40-60); Triglycerides 278 mg/dl (30-150); VLDL Cholesterol 56 mg/dL (0-40)
[2022-03-26 11:08] LABS: Direct LDL Cholesterol 131.88 mg/dL (100-129)
[2022-03-26 11:16] LABS: Appearance,Urine TURBID (Clear); Blood, Urine 3+ (Negative); Glucose,Urine (UA) TRACE (Negative); Ketones,Urine 1+ (Negative); Leukocyte Esterase,Urine 2+ (Negative); Nitrate,Urine POSITIVE (Negative); PH,Urine 6.5 (5.0-8.5); Protein,Urine 3+ (Negative); Specific Gravity, Urine 1.025 (1.005-1.030)
[2022-03-26 11:21] LABS: Bilirubin,Urine 1+ (Negative); Color,Urine RED (Yellow)
[2022-03-26 11:27] LABS: Thyroid Stimulating Hormone 1.92 uIU/mL (0.465-4.68)
[2022-03-26 11:39] LABS: Bacteria,Urine 1+ /lpf; RBC,Urine TNTC #/hpf (0-3); Squamous Epithelial Cell,Urine Occasional #/hpf (0-5)
== END ==
PROVIDERS: PCP Family Medicine; Visit Provider Family Medicine
DX: D64.9 Anemia, unspecified (principal); I10 Essential (primary) hypertension
CPT/HCPCS: 36415; 80053; 80061; 81001; 84443; 85025; 87086

== ENCOUNTER → 2022-04-10 15:15 | Outpatient (CLI) | payer BC, SELFPAY ==
--- NOTE | 2022-04-10 15:15 | CT_ITS ---
FINAL REPORT CLINICAL HISTORY: headaches on front right side, dizziness, hypertension FINDINGS: Axial images of the head were obtained without contrast. Coronal reformatted images were also obtained.This study was performed with techniques to keep radiation doses as low as reasonably achievable (ALARA). Individualized dose reduction techniques using automated exposure control or adjustment of mA and/or kV according to the patient's size were employed. There is no evidence of intracranial hemorrhage or mass. The ventricular size is within normal limits. There is no evidence of shift of the midline structures. No abnormal extra axial fluid collection is identified. No skull abnormality is seen on the bone window images. IMPRESSION: No acute intracranial abnormality. Reviewed, Interpreted and Dictated by Clayton Beyer III, MD Transcribed by Vibha Aaron Authenticated and [facility]
== END ==
PROVIDERS: PCP Family Medicine; Visit Provider Internal Medicine
DX: R51.9 Headache, unspecified (principal); I10 Essential (primary) hypertension
CPT/HCPCS: 70450

== ENCOUNTER → 2022-11-25 16:37 | Outpatient (CLI) | payer BC, SELFPAY | PROVIDERS: PCP Nurse Practitioner Family; Visit Provider Nurse Practitioner Family | DX: R30.0 Dysuria (principal) | CPT/HCPCS: 87086 ==

== ENCOUNTER → 2022-12-01 07:42 | Outpatient (CLI) | payer BC, SELFPAY ==
--- NOTE | 2022-12-01 07:43 | CT_ITS ---
FINAL REPORT TECHNIQUE: Axial CT images of the abdomen and pelvis were obtained before and after the administration of IV contrast. This study was performed with techniques to keep radiation doses as low as reasonably achievable (ALARA). Individualized dose reduction techniques using automated exposure control or adjustment of mA and/or kV according to the patient''s size were employed. CLINICAL HISTORY: abd pain, hematuria COMPARISON: 11/29/2019 FINDINGS: Abdomen: The lung bases are clear. The heart is normal in size. The liver has an unremarkable appearance, without evidence of mass or biliary duct dilatation. Postcholecystectomy.. The spleen is unremarkable. No adrenal masses present. The pancreas has an unremarkable appearance. The kidneys enhance normally. No evidence of renal mass. The aorta is normal in caliber. Mild vascular calcifications. There is no free fluid or adenopathy. No mass or abnormal fluid collection is seen. Precontrast images demonstrate no evidence of nephrolithiasis. Pelvis: The appendix is normal The urinary bladder is unremarkable. No ureteral stone. No inflammatory process is seen. There is no evidence of mass or adenopathy. There is no evidence of bowel obstruction. IMPRESSION: No evidence of acute intra-abdominal process. Reviewed, Interpreted and Dictated by Clayton Beyer III, MD Transcribed by Gemma Lobo Authenticated and [facility]
[2022-12-01 08:03] LABS: Blood Urea Nitrogen 10 mg/dl (7-17); Estimated Glomerular Filt Rate 78 ml/min (>60); GFR (African American) 95 ML/MIN (>60)
== END ==
LOC: RAD 07:43
PROVIDERS: PCP Nurse Practitioner Family; Visit Provider Nurse Practitioner Family
DX: R10.9 Unspecified abdominal pain (principal)
CPT/HCPCS: 36415; 74178; 82565; 84520; Q9967

== ENCOUNTER → 2023-04-02 13:03 | Outpatient (CLI) | payer BC, SELFPAY ==
[2023-04-02 13:00] LABS: Basophils # 0.1 K/mm3 (0-0.2); Basophils % 0.7 % (0.1-2.0); Eosinophils # 0.2 K/mm3 (0.0-0.4); Eosinophils % 2.3 % (0.1-12.0); Hematocrit 34.8 % (37.0-47.0); Hemoglobin 10.9 g/dL (12.2-16.2); Lymphocytes % 23.9 % (10-50); Mean Corpuscular HGB Conc 31.4 g/dL (31.8-35.4); Mean Corpuscular Hemoglobin 25.4 pg (27.0-31.2); Mean Corpuscular Volume 80.9 fl (81-99); Mean Platelet Volume 10.3 fl (7.4-10.4); Monocytes # 0.5 K/mm3 (0.1-1.0); Monocytes % 6.7 % (1.7-9.3); Neutrophils # 5.4 K/mm3 (1.8-7.8); Neutrophils % 66.5 % (37.0-80.0); Platelet Count 314 K/mm3 (142-424); Red Cell Distribution Width 15.5 % (11.5-17.5); White Blood Count 8.2 K/mm3 (4.8-10.8)
[2023-04-02 13:32] LABS: Alanine Aminotransferase 21 U/L (12-78); Albumin Level 4.4 g/dl (3.5-5.0); Albumin/Globulin Ratio 1.5 (1.1-1.8); Alkaline Phosphatase 86 U/L (38-126); Anion Gap 12.8 mEq/L (5-15); Aspartate Amino Transferase 24 U/L (14-36); Bilirubin,Total 0.4 mg/dl (0.2-1.3); Blood Urea Nitrogen 12 mg/dl (7-17); Carbon Dioxide 30 mmol/L (22.0-30.0); Chloride 98 mmol/L (98-107); Cholesterol 245 mg/dl (140-200); Estimated Glomerular Filt Rate 91 ml/min (>60); GFR (African American) 110 ML/MIN (>60); Globulin 2.9 g/dL (1.3-3.2); Glucose 81 mg/dl (74-100); HDL Cholesterol 35 mg/dl (40-60); Potassium 4.8 mmoL/L (3.5-5.1); Sodium 136 mmol/L (136-145); Total Protein,Serum 7.3 g/dl (6.3-8.2); Triglycerides 234 mg/dl (30-150); VLDL Cholesterol 47 mg/dL (0-40)
[2023-04-02 13:43] LABS: Direct LDL Cholesterol 144.22 mg/dL (100-129)
[2023-04-02 13:50] LABS: 25-OH Vitamin D, Total 43.6 ng/mL (30-100)
[2023-04-02 13:51] LABS: Free T4 (Free Thyroxine) 1.33 ng/dl (0.78-2.19)
[2023-04-02 14:03] LABS: Thyroid Stimulating Hormone 3.22 uIU/mL (0.465-4.68)
[2023-04-02 14:22] LABS: Vitamin B12 980 pg/mL (239-931)
[2023-04-02 14:54] LABS: Iron 66 ug/dL (37-170)
[2023-04-02 15:06] LABS: Total Iron Binding Capacity 436 ug/dL (265-497)
[2023-04-02 15:30] LABS: Ferritin 7.52 ng/ml (6.24-137)
[2023-04-02 16:05] LABS: Hemoglobin A1C 5.7 % (4.0-6.0)
[2023-04-03 09:13] LABS: FSH 3.5 mIU/mL (.); LH 7.9 mIU/mL (.)
[2023-04-06 21:37] LABS: Anti Mullerian Hormone (AMH) 1.48
== END ==
LOC: LAB.DROPOF 13:04
PROVIDERS: PCP Nurse Practitioner Family; Visit Provider Nurse Practitioner Family
DX: I10 Essential (primary) hypertension (principal); R53.83 Other fatigue; N95.1 Menopausal and female climacteric states; E66.9 Obesity, unspecified; Z68.38 Body mass index [BMI] 38.0-38.9, adult
CPT/HCPCS: 80053; 80061; 82306; 82397; 82607; 82670; 82728; 83001; 83002; 83036; 83540; 83550; 84439; 84443; 85025

== ENCOUNTER 2023-04-28 09:51 | Outpatient (CLI) | payer BC, SELFPAY ==
[2023-04-28 10:15] VITALS: BP 124/91; PULSE 70; RESP 18; O2SAT 97
[2023-04-28] MEDS: IRON SUCROSE COMPLEX 200 MG in 0.9 % SODIUM CHLORIDE 100 ML 220 MG IV (10:15)
[2023-04-28] MEDS: 0.9 % SODIUM CHLORIDE 50 ML 100 ML IV (10:15)
[2023-04-28 10:56] VITALS: BP 136/91; PULSE 67; RESP 18; O2SAT 98
== END 2023-04-28 10:56 | disposition home or self-care (01) ==
LOC: INF 09:51
PROVIDERS: PCP Nurse Practitioner Family; Visit Provider Nurse Practitioner Family
DX: E61.1 Iron deficiency (principal); R53.83 Other fatigue
CPT/HCPCS: 96365; J1756

== ENCOUNTER 2023-05-05 15:15 | Outpatient (CLI) | payer BC, SELFPAY ==
[2023-05-05] MEDS: IRON SUCROSE COMPLEX 200 MG in 0.9 % SODIUM CHLORIDE 100 ML 220 MG IV (15:45)
[2023-05-05 15:48] VITALS: BP 144/76; PULSE 72; RESP 18; TEMP 36.8; O2SAT 98
[2023-05-05] MEDS: SODIUM CHLORIDE 0.9% 10ML FLUSH SYRINGE 10 ML IV (16:00)
[2023-05-05 16:20] VITALS: BP 147/72; PULSE 72; RESP 18; TEMP 36.8; O2SAT 99
[2023-05-05] MEDS: SODIUM CHLORIDE 0.9% 50ML BAG 50 ML IV (16:20)
== END 2023-05-05 16:25 | disposition home or self-care (01) ==
LOC: INF 15:16
PROVIDERS: PCP Nurse Practitioner Family; Visit Provider Nurse Practitioner Family
DX: R53.83 Other fatigue; E61.1 Iron deficiency
CPT/HCPCS: 96365; J1756

== ENCOUNTER 2023-05-11 15:26 | Outpatient (CLI) | payer BC, SELFPAY ==
[2023-05-11 15:45] VITALS: BP 154/72; PULSE 84; RESP 18; O2SAT 99
[2023-05-11] MEDS: SODIUM CHLORIDE 0.9% 50ML BAG 50 ML IV (15:45)
[2023-05-11] MEDS: IRON SUCROSE COMPLEX 200 MG in 0.9 % SODIUM CHLORIDE 100 ML 220 MG IV (15:45)
[2023-05-11] MEDS: SODIUM CHLORIDE 0.9% 10ML FLUSH SYRINGE 10 ML IV (15:45)
[2023-05-11 16:20] VITALS: BP 129/83; PULSE 66; RESP 18
== END 2023-05-11 16:25 | disposition home or self-care (01) ==
LOC: INF 15:27
PROVIDERS: PCP Nurse Practitioner Family; Visit Provider Nurse Practitioner Family
DX: E61.1 Iron deficiency (principal); R53.83 Other fatigue
CPT/HCPCS: 96365; J1756

== ENCOUNTER 2023-05-18 14:09 | Outpatient (CLI) | payer BC, SELFPAY ==
[2023-05-18 14:25] VITALS: BP 157/96; PULSE 70; RESP 18; O2SAT 96
[2023-05-18] MEDS: IRON SUCROSE COMPLEX 200 MG in 0.9 % SODIUM CHLORIDE 100 ML 220 MG IV (14:25)
[2023-05-18] MEDS: SODIUM CHLORIDE 0.9% 50ML BAG 50 ML IV (14:25)
[2023-05-18 15:00] VITALS: BP 150/78; PULSE 75; RESP 18; O2SAT 96
== END 2023-05-18 15:00 | disposition home or self-care (01) ==
LOC: INF 14:10
PROVIDERS: PCP Nurse Practitioner Family; Visit Provider Nurse Practitioner Family
DX: E61.1 Iron deficiency (principal); R53.83 Other fatigue; R79.0 Abnormal level of blood mineral
CPT/HCPCS: 96365; J1756

== ENCOUNTER 2023-05-25 15:38 | Outpatient (CLI) | payer BC, SELFPAY ==
[2023-05-25] MEDS: IRON SUCROSE COMPLEX 200 MG in 0.9 % SODIUM CHLORIDE 100 ML 220 MG IV (15:45)
[2023-05-25 15:50] VITALS: BP 146/85; PULSE 70; RESP 16; TEMP 36.6; O2SAT 97
[2023-05-25] MEDS: SODIUM CHLORIDE 0.9% 10ML FLUSH SYRINGE 10 ML IV (16:26)
[2023-05-25] MEDS: SODIUM CHLORIDE 0.9% 50ML BAG 50 ML IV (16:34)
[2023-05-25 16:35] VITALS: BP 145/98; PULSE 74; RESP 16; O2SAT 97
== END 2023-05-25 16:37 | disposition home or self-care (01) ==
LOC: INF 15:39
PROVIDERS: PCP Nurse Practitioner Family; Visit Provider Nurse Practitioner Family
DX: R53.83 Other fatigue (principal); E61.1 Iron deficiency; R79.0 Abnormal level of blood mineral
CPT/HCPCS: 96365; J1756

== ENCOUNTER 2023-06-22 15:00 | Outpatient (CLI) | payer BC, SELFPAY | END 2023-06-22 23:59 | LOC: LAB.DROPOF 08-06 10:17 | PROVIDERS: PCP Nurse Practitioner Family; Visit Provider Nurse Practitioner Family | DX: J02.9 Acute pharyngitis, unspecified (principal); R05.9 Cough, unspecified; R51.9 Headache, unspecified | CPT/HCPCS: 87070 ==

== ENCOUNTER 2023-07-14 15:17 | Outpatient (CLI) | payer BC, SELFPAY ==
--- NOTE | 2023-07-14 15:18 | CT_ITS ---
FINAL REPORT TECHNIQUE: Thin section axial CT images of the facial bones and sinuses were obtained without contrast. Coronal reformatted images were also obtained.This study was performed with techniques to keep radiation doses as low as reasonably achievable, (ALARA). Individualized dose reduction techniques using automated exposure control or adjustment of mA and/or kV according to the patient''''s size were employed. CLINICAL HISTORY: sinusitis FINDINGS: There is no evidence of mucosal thickening. No fluid levels are identified. The ostiomeatal units have an unremarkable appearance. There is minimal nasal septal deviation to the right. No fracture or acute bony abnormality is identified. IMPRESSION: No focal abnormality identified of the sinuses. Minimal nasal septal deviation to the right. Reviewed, Interpreted and Dictated by Clayton Beyer III, MD Transcribed by Daisy Asher Authenticated and . [facility]
== END 2023-07-14 23:59 ==
LOC: RAD 15:18
PROVIDERS: PCP Nurse Practitioner Family; Visit Provider Nurse Practitioner
DX: J32.9 Chronic sinusitis, unspecified (principal); H65.193 Other acute nonsuppurative otitis media, bilateral
CPT/HCPCS: 70486

== ENCOUNTER 2023-10-06 12:13 | Emergency (ER) | payer BC, SELFPAY ==
[2023-10-06 12:55] VITALS: BP 142/74; PULSE 74; RESP 18; TEMP 36.9; O2SAT 95; BMI 35.8
--- NOTE | 2023-10-06 13:44 | EXP.UTC ---
Discharge Plan Disposition Patient Disposition: Home, Self-Care Condition: Good Prescriptions Prescriptions: New ondansetron 8 mg tablet,disintegrating 8 mg PO Q8H PRN (Reason: nausea and vomiting) Qty: 10 0RF loperamide 2 mg capsule 2 mg PO Q4H PRN (Reason: loose stool) Qty: 20 0RF Rx Instructions: administer after each loose stool until symptoms controlled; do not exceed 8 mg per 24 hrs No Action Women's Multivitamin 18 mg-400 mcg- 500 mg-50 mcg tablet 1 tab PO DAILY sertraline [Zoloft] 100 mg tablet 150 mg PO DAILY 90 Days Qty: 135 1RF fluticasone propionate 50 mcg/actuation spray,suspension 2 spray intranasal DAILY coenzyme Q10 [Co Q-10] 100 mg capsule 100 mg PO DAILY omega 3-bqh-dri-fish oil [Fish Oil] 1,200 (144-216) mg capsule 1 cap PO DAILY hydrochlorothiazide 12.5 mg capsule 12.5 mg PO QAM Qty: 90 3RF lisinopril 40 mg tablet 40 mg PO DAILY 90 Days Qty: 90 1RF propranolol 80 mg capsule,extended release 24 hr 80 mg PO DAILY Qty: 90 1RF omeprazole 40 mg capsule,delayed release(DR/EC) 40 mg PO DAILY Qty: 90 1RF trazodone 50 mg tablet 100 mg PO HS 90 Days Qty: 180 1RF acyclovir 400 mg tablet 400 mg PO BID PRN (Reason: cold sores) Qty: 60 3RF jsshzefcsp-wpqbrojnwdobx-nxaa [Fioricet] 50-300-40 mg capsule 1 cap PO Q6H PRN (Reason: pain) Qty: 30 0RF Qulipta 60 mg tablet See Rx Instructions .ROUTE .COMPLEX Qty: 90 3RF Dose Instruction: TAKE 1 TABLET BY MOUTH DAILY Rx Instructions: TAKE 1 TABLET BY MOUTH DAILY Referrals Follow up/Referrals: Sheyla Jones APRN [Primary Care Provider] - See instructions Clinical Impressions Clinical Impression: Gastroenteritis Instructions Patient Instructions: DI for Vomiting -- Adult, DI for Diarrhea and Traveler's Diarrhea -- Adult Discharge ED Provider: Renita Snell [facility] General Stated complaint: dehydrated Mode of Arrival: Ambulatory Source of Information: Patient Limitations: No Limitations Time Seen by Provider: 10/06/23 13:44 Description of Symptoms (Recalled from Triage Doc. by RN): Pt's symptoms are she's had a stomach virus since thursday, and she feels dehydrated. HEENT Symptoms (Recalled from RN notes): No Resp Symptoms (Recalled from RN notes): No Skin Symptoms (Recalled from RN notes): No MS Symptoms (Recalled from RN notes): No Functional Status (Recalled from RN notes): n.a History of Present Illness Provider Complaint: Pt reports that she has been sick since Thursday with N/V/D . She reports that this has gone through her whole family. She states that she stopped vomiting on Thursday, but has continued to have diarrhea every time she puts something in her mouth. She is concerned that she may be getting dehydrated as she has felt so tired. Related Data Home Medications Medication Instructions Recorded Confirmed bphsifev-aag-jyft 18 mg-FA 400 1 tab PO DAILY 03/25/22 10/06/23 mcg-calcium 500 mg-vit K 50 mcg tablet (Women's Multivitamin) coenzyme Q10 100 mg capsule (Co 100 mg PO DAILY 10/01/23 10/06/23 Q-10) fluticasone propionate 50 2 spray intranasal DAILY 10/01/23 10/06/23 mcg/actuation nasal spray,suspension omega 5-jyc-sgr-fish oil 1,200 mg 1 cap PO DAILY 10/01/23 10/06/23 (144 mg-216 mg) capsule (Fish Oil) Previous Rx's Medication Instructions Recorded sertraline 100 mg tablet (Zoloft) 150 mg (1.5 x 100 mg) PO DAILY 04/01/23 Anxiety 90 days #135 tabs gnymdnutfk-tcujwzdrrhqbe-uhyrdrnm 1 cap PO Q6H PRN pain #30 caps 07/27/23 50 mg-300 mg-40 mg capsule (Fioricet) atogepant 60 mg tablet (Qulipta) See Rx Instructions .Route 09/16/23 .COMPLEX #90 tabs acyclovir 400 mg tablet 400 mg PO BID PRN cold sores #60 10/01/23 tabs hydrochlorothiazide 12.5 mg capsule 12.5 mg PO QAM #90 caps 10/01/23 lisinopril 40 mg tablet 40 mg PO DAILY 90 days #90 tabs 10/01/23 omeprazole 40 mg capsule,delayed 40 mg PO DAILY ACID REFLUX #90 caps 10/01/23 release propranolol 80 mg capsule,24 80 mg PO DAILY #90 caps 10/01/23 hr,extended release trazodone 50 mg tablet 100 mg (2 x 50 mg) PO HS Insomnia 10/01/23 90 days #180 tabs loperamide 2 mg capsule 2 mg PO Q4H PRN loose stool #20 10/06/23 caps ondansetron 8 mg disintegrating 8 mg PO Q8H PRN nausea and 10/06/23 tablet vomiting #10 tabs Allergies Allergy/AdvReac Type Severity Reaction Status Date / Time Penicillins Allergy Severe Hives Verified 10/06/23 13:21 cefaclor Allergy Intermediate Rash Verified 10/06/23 13:21 Sulfa (Sulfonamide Allergy Intermediate Rash Verified 10/06/23 13:21 Antibiotics) amoxicillin Allergy rash Verified 10/06/23 13:21 egg Allergy choking Verified 10/06/23 13:21 Worker's Comp Is this a Worker's Comp case?: No [facility] Disclaimer: The information contained in this section may have been updated after the patient was seen, as this information can be updated by other users. Medical History (Updated 10/06/23 @ 14:04 by Renita Snell APRN) Acute effusion of both middle ears Viral respiratory illness Hematuria Urinary tract infection symptoms Acute right flank pain Abdominal pain Sinusitis, acute Fever Sore throat Blurry vision Anemia following surgery Colonic diverticular abscess Postoperative ileus High blood pressure Migraine Depression GERD (gastroesophageal reflux disease) Anxiety Postoperative ileus Postoperative anemia Colonic diverticular abscess Diverticulitis Menorrhagia Anemia Acute diverticulitis Surgical History History of colon resection History of cholecystectomy Family History Father Cancer Kidney Hyperlipidemia Hypertension Mother Cancer Lung Diabetes Heart attack Hyperlipidemia Hypertension Stroke Sister Heart attack Hypertension Stroke Social History Smoking Status: Never smoker second hand exposure: Yes alcohol intake: current alcohol intake frequency: holidays/special occasions only substance use type: denies use current occupational status: employed Travel in the last 8 weeks: None adopted: No caregiver/support person: Yes foster care: No household members: spouse housing: house lives independently: Yes marital status: number of children: 3 current occupation: [employer] current occupational exposures/hazards: No caffeine: Yes ROS Obtained: Yes All systems reviewed & no additional complaints except as documented Constitutional Constitutional: Reports system reviewed and no additional complaints, except as documented, Reports fatigue and Reports malaise Eyes Eyes: Reports system reviewed and no additional complaints, except as documented ENT Ears, Nose, Mouth, and Throat: Reports system reviewed and no additional complaints, except as documented and Reports dry mouth Cardiovascular Cardiovascular: Reports system reviewed and no additional complaints, except as documented Respiratory Respiratory: Reports system reviewed and no additional complaints, except as documented Gastrointestinal Gastrointestingal: Reports system reviewed and no additional complaints, except as documented, cramping, diarrhea, nausea and vomiting Genitourinary Female Genitourinary: Reports system reviewed and no additional complaints, except as documented Musculoskeletal Musculoskeletal: Reports system reviewed and no additional complaints, except as documented Integumentary/Breasts Skin/Breast: Reports system reviewed and no additional complaints, except as documented Neurologic Neurologic: Reports system reviewed and no additional complaints, except as documented Endocrine Endocrine: Reports system reviewed and no additional complaints, except as documented and Reports fatigue Hematologic/Lymphatic Henatologic/Lymphatic: Reports system reviewed and no additional complaints, except as documented Allergic/Immunologic Allergic/Immunologic: Reports system reviewed and no additional complaints, except as documented Physical Exam General General appearance: alert Comment: ill appearing Head Head exam: atraumatic and normocephalic Eye Eye exam: Present normal appearance ENT ENT exam: Present mucous membranes dry Neck Neck exam: Present normal inspection Chest Chest inspection: Present normal inspection and symmetric chest wall rise Respiratory Respiratory exam: Present normal lung sounds bilaterally Cardiovascular Cardiovascular exam: Present regular rate and normal rhythm Abdominal Exam Abdominal exam: Present soft, tenderness and hyperactive bowel sounds Abdominal tenderness: Present diffuse Back Exam Back exam: Present normal inspection Neurological Exam Neurological exam: Present alert and oriented X3 Psychiatric Psychiatric exam: Present normal affect and normal mood Skin Skin exam: Present warm, dry and intact Lymphatic Lymphatic Findings: no adenopathy Medical Decision Making Jamel Inquiry Pt receiving controlled substance: No Jamel was queried for this patient: No Vital Signs: 10/06/23 12:55 Temperature 98.4 F Temperature Source Oral Pulse Rate [Right Radial] 74 Respiratory Rate 18 Blood Pressure [Right Arm] 142/74 H Blood Pressure Mean [Right Arm] 96 Blood Pressure Source [Right Arm] Automatic Cuff Blood Pressure Position [Right Arm] Sitting 02 Sat by Pulse Oximetry 95 Oxygen Delivery Method Room Air
[2023-10-06 14:14] VITALS: BP 142/74; PULSE 74; RESP 18; TEMP 36.9; O2SAT 95
== END 2023-10-06 14:14 | disposition home or self-care (01) ==
PROVIDERS: Emergency Provider Nurse Practitioner Family; PCP Nurse Practitioner Family
DX: K52.9 Noninfective gastroenteritis and colitis, unspecified (principal); R11.2 Nausea with vomiting, unspecified
CPT/HCPCS: 99204; 99212; G0463

== ENCOUNTER 2025-04-20 15:40 | Outpatient (CLI) | payer BC, SELFPAY ==
--- NOTE | 2025-04-20 16:00 | US_ITS ---
PROCEDURE: US TRANSVAGINAL CLINICAL INDICATION: heavy periods COMPARISON: CT CT ABDOMEN PELVIS WO/W CON from 11/29/[address] ABDOMEN PELVIS WO/W CON from 12/01/2022 FINDINGS: Transvaginal sonographic images of the pelvis were obtained. UTERUS: 10.0cm x 4.4cmx 4.8 cm anteverted with a combined endometrial thickness of 4.3mm. There is a nabothian cyst in the cervix measuring 1.25 cm There are at least 2 other nabothian cysts. Fibroid 1.0 cm x 0.7 cm x 1.0 cm LEFT OVARY: 2.8 cmx2.4cmx1.8cm with a volume of 6.4ml. RIGHT OVARY: 3.2cmx 1.4cmx1.8 cm with a volume of 4.1ml. There is a follicle measuring 1.7 cm x 1.6 cm x 1.3 cm Both ovaries are seen and appear normal. Doppler flow to both ovaries are seen. There is no fluid in the cul-de-sac. IMPRESSION: 1. Anteverted, enlarged uterus. The endometrium is thin measuring 4.3 cm. 2. There appears to be an intramural small fibroid measuring 1.0 cm. 3. Both ovaries are seen and appear normal. The right ovary has a follicle measuring 1.7 cm. 4. No fluid in the cul-de-sac. Dictated by: Scott Catherine MD 04/20/2025 17:13 Scott Catherine MD in OV 04/20/2025 17:13
--- NOTE | 2025-04-20 16:30 | MM_ITS ---
PROCEDURE INFORMATION: Exam: Bilateral Screening 3D Mammography Exam date and time: 04/20/2025 4:01 PM Age: 45 years old Clinical indication: Baseline. No family history of breast cancer. TECHNIQUE: Imaging protocol: Bilateral Screening tomosynthesis and 2D mammography including computer-aided detection (CAD) when performed. COMPARISON: No relevant prior studies available. FINDINGS: MAMMOGRAPHY: Breast composition: There are scattered areas of fibroglandular density. Mass: Oval 0.8 cm mass in the right upper outer posterior 3rd, 13-15 cm from the nipple, CC image [id number] frame 27 and MLO image [id number] frame 27. Oval 0.5 cm mass in the left breast 11-7 o'clock middle 3rd, 5-6 cm from the nipple, CC image [id number] frame 25 and MLO image [id number] for frame 38. Architectural distortion: None. Calcifications: No suspicious calcifications. Asymmetric density: None. Skin thickening: None. Axillary adenopathy: None. IMPRESSION: Patient will be recalled for right sonography and left diagnostic mammography with spot compression CC and MLO and left sonography for further evaluation of masses. ASSESSMENT: BI-RADS Category 0: Incomplete: Need Additional Imaging Evaluation.
== END 2025-04-20 23:59 | disposition home or self-care (01) ==
LOC: RAD 15:41
PROVIDERS: PCP Nurse Practitioner Family; Visit Provider Nurse Practitioner Obstetrics & Gynecology
DX: Z12.31 Encounter for screening mammogram for malignant neoplasm of breast (principal); C50.911 Malignant neoplasm of unspecified site of right female breast; C50.912 Malignant neoplasm of unspecified site of left female breast; N63.11 Unspecified lump in the right breast, upper outer quadrant; N63.20 Unspecified lump in the left breast, unspecified quadrant; N85.4 Malposition of uterus; N85.2 Hypertrophy of uterus; N83.01 Follicular cyst of right ovary; R92.323 Mammographic fibroglandular density, bilateral breasts
CPT/HCPCS: 76830; 77063; 77067